=== PATIENT | female | born 1995 | race Two or more races ===

== ENCOUNTER 2017-12-21 19:28 | Outpatient (CLI) | payer BC ==
[2017-12-21 20:08] LABS: APPEARANCE,URINE SLIGHTLY-CLOUDY; BILIRUBIN,URINE NEGATIVE (NEGATIVE); COLOR,URINE AMBER; GLUCOSE, URINE NEGATIVE (NEGATIVE); KETONES,URINE NEGATIVE (NEGATIVE); LEUKOCYTE ESTERASE,URINE MODERATE (NEGATIVE); NITRITE,URINE NEGATIVE (NEGATIVE); PROTEIN,URINE 30 mg/dL (NEGATIVE); URINE SPECIFIC GRAVITY 1.026
[2017-12-21 20:22] LABS: AMNISURE (ROM) NEGATIVE (NEGATIVE)
--- NOTE | 2017-12-21 20:52 | Non Stress Test Report ---
Non Stress Test Datetime Report Generated by CPN: 12/21/2017 20:51 INDICATION Indication for Study: Ordered by Provider; Other Indication for Study (NST) Other: labor check MONITORING Monitor Explained: Monitor Explained; Test Explained; Patient Verbalized Understanding Time on Monitor: 12/21/2017 19:54 Time off Monitor: 12/21/2017 20:24 NST Duration: 30 NST INTERVENTIONS NST Interventions: None Physician Notified NST: Martinez BABY A: [id number] BABY A Movement : Present Contraction Frequency : uterine irritability FHR Baseline : 135 Accelerations : 15X15 Decelerations : None Variability : Moderate 6-25bpm NST Review: Meets Criteria for Reactive NST NST Review and Verified By : anjali desai rn NST Results: Reactive NST REPORT Report Trigger: Send Report
[2017-12-21 21:01] LABS: URINE AMPHETAMINES SCREEN NEGATIVE; URINE BARBITURATES SCREEN NEGATIVE; URINE BENZODIAZEPINES SCREEN NEGATIVE; URINE COCAINE SCREEN NEGATIVE; URINE MARIJUANA (THC) SCREEN NEGATIVE; URINE METHADONE SCREEN NEGATIVE; URINE PHENCYCLIDINE SCREEN NEGATIVE
== END 2017-12-21 20:36 | disposition home or self-care (01) ==
LOC: LC 19:28
PROVIDERS: ATTEND Student in an Organized Health Care Education/Training Program
PROC: 4A1HXCZ Monitoring of Products of Conception, Cardiac Rate, External Approach (ICD-10-PCS; principal; 2017-12-21)
DX: O47.03 False labor before 37 completed weeks of gestation, third trimester (principal); Z3A.34 34 weeks gestation of pregnancy
CPT/HCPCS: 59025; 80307; 81001; 84112

== ENCOUNTER 2017-12-25 10:40 | Inpatient (IN) | payer BC ==
[2018-01-03] MEDS ORDERED: RINGERS SOLUTION,LACTATED 300 ML IV ONE (06:13)
[2018-01-03] MEDS ORDERED: OXYTOCIN/NORMAL SALINE 20 UNIT/1,000 ML RTUINJ IV PRN (06:13)
[2018-01-03] MEDS ORDERED: RINGERS SOLUTION,LACTATED 1,000 ML IV PRN (06:13)
[2018-01-03 06:43] LABS: ABSOLUTE LYMPHOCYTES (AUTO) 1.1 10^3/uL (0.5-4.7); ABSOLUTE MONOCYTES (AUTO) 0.5 10^3/uL (0.1-1.4); ABSOLUTE NEUT (AUTO) 6.6 10^3/uL (1.7-8.2); BASOPHILS % (AUTO) 0.2 % (0-2); EOSINOPHILS % (AUTO) 0.5 % (0-6); HEMATOCRIT 32.9 % (36.0-47.0); LYMPHOCYTES % (AUTO) 13.2 % (13-45); MEAN CORPUSCULAR HEMOGLOBIN 27.1 pg (27.0-33.4); MEAN CORPUSCULAR HGB CONC 33.4 g/dL (32.0-36.0); MEAN CORPUSCULAR VOLUME 81 fl (80-97); MONOCYTES % (AUTO) 5.5 % (3-13); PLATELET COUNT 233 10^3/uL (150-450); RED BLOOD COUNT 4.06 10^6/uL (3.72-5.28); RED CELL DISTRIBUTION WIDTH 12.9 % (11.5-14.0); SEGMENTED NEUTROPHILS % (AUTO) 80.6 % (42-78); TOTAL CELLS COUNTED % (AUTO) 100 %; WHITE BLOOD COUNT 8.2 10^3/uL (4.0-10.5)
[2018-01-03] MEDS ORDERED: MISOPROSTOL 0.2 MG TABLET ONE (07:53)
[2018-01-03] MEDS ORDERED: OXYTOCIN/NORMAL SALINE 20 UNIT/1,000 ML RTUINJ ONE (07:53)
[2018-01-03] MEDS ORDERED: LIDOCAINE 1% INJ-PF (10 MG/ML) 30 ML SDV ONE (07:53)
--- NOTE | 2018-01-03 08:00 | Admission Physical ---
Datetime Report Generated by CPN: 01/03/2018 08:00 CURRENT ADMISSION Chief Complaint: Scheduled Induction of Labor Chief Complaint Other: cholestasis Indication for Induction: Other Indication for Induction- Other: Cholestasis Admit Impression : , Intrauterine ; No Active Labor; Induction of Labor Admit Impression- Other: cholestasis Admit Plan: Admit to Unit; Initiate Labor Induction Protocol ALLERGIES Medication Allergies: No Medication Allergies: No Known Allergies (01/03/2018) Latex: No Latex Allergies Food Allergies: calamari OBSTETRICAL HISTORY EDC: 01/25/2018 00:00 : 1 Para: 0 Term: 0 : 0 SAB: 0 IAB: 0 Ectopic: 0 Livin Cesareans: 0 VBACs: 0 Multiple Births: 0 Gestational Diabetes: No Rh Sensitization: No Incompetent Cervix: No LATOYA: No Infertility: No ART Treatment: No Uterine Anomaly: No IUGR: No Hx Previous C/S: No Macrosomia: No Hx Loss/Stillborn: No PIH: No Hx : No Placenta Previa/Abruption: No Depression/PP Depression: No PTL/PROM: No Post Hemorrhage: No Current Procedures: Ultrasound; NST Obstetrical History Comments: g1 - current cholestasis SEE RECORDS Alcohol: No Marijuana : No Cocaine: No Other Illicit Drugs: No Cigarettes: Never Smoker. 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 Heart Disease: No Hosp/Surgery: No Autoimmune Disorder: No Anesthetic Complications: No Kidney Disease: No Abnormal Pap Smear: No Neuro/Epilepsy: No Psychiatric Disorders: No Other Medical Diseases: No Hepatitis/Liver Disease: No Significant Family History: No Varicosities/Phlebitis: No Trauma/Violence : No Thyroid Dysfunction: No Medical History Comments: cholestasis INFECTIOUS HISTORY Gonorrhea: No Genital Herpes: No Chlamydia: No Tuberculosis: No Syphilis: No Hepatitis: No HIV/AIDS Exposure: No Rash or Viral Illness: No HPV: No PHYSICAL EXAM General: Normal HEENT: Normal Neurologic: Normal Thyroid: Deferred Heart: Normal Lungs: Normal Breast: Deferred Back: Normal Abdomen: Normal Genitourinary Exam: Normal Extremities: Normal DTRs: Normal Pelvic Type: Adequate Vital Signs: Reviewed VAGINAL EXAM Dilatation: 3 Effacement: 90 Station: -1 Contraction Comments: none MEMBRANES Membranes: Intact Amniotic Fluid Color: Clear FETUS A EGA: 36.6 Monitoring: External US FHR- Baseline: 145 Variability: Moderate 6-25bpm Accelerations: 15X15 Decelerations: None FHR Category: Category I Presentation: Vertex Admit Comment: 22yo at 36+6ega presents for scheduled IOL. c/b choletasis of with Bile acids 46. Pt now with favorable cervix. Unproven pelvis - but pelvis adequate for YENNIFER. Anticipate . GBS negative. reasuring FWB. labs done on admission. Will check labs/coags at 1000. Begin pitocin for IOL. section if needed for maternal/ indications. PLANS FOR LABOR AND DELIVERY Labor and Delivery: None Pain Management: Epidural Feeding Preference: Breast Benefit of Breast Feed Discussed: Yes Circumcision: N/A INFORMED CONSENT Informed Consent Obtained: Vaginal Delivery; Induction of Labor; Risks, Benefits and Alternatives Discussed Signature: with User ID: [email or web address]
[2018-01-03 08:35] LABS: APPEARANCE,URINE CLOUDY; BILIRUBIN,URINE NEGATIVE (NEGATIVE); GLUCOSE, URINE NEGATIVE (NEGATIVE); KETONES,URINE NEGATIVE (NEGATIVE); LEUKOCYTE ESTERASE,URINE LARGE (NEGATIVE); NITRITE,URINE NEGATIVE (NEGATIVE); PROTEIN,URINE NEGATIVE (NEGATIVE); URINE SPECIFIC GRAVITY 1.016
[2018-01-03 08:36] LABS: COLOR,URINE YELLOW
[2018-01-03 08:53] LABS: URINE AMPHETAMINES SCREEN NEGATIVE; URINE BARBITURATES SCREEN NEGATIVE; URINE COCAINE SCREEN NEGATIVE; URINE MARIJUANA (THC) SCREEN NEGATIVE; URINE METHADONE SCREEN NEGATIVE; URINE PHENCYCLIDINE SCREEN NEGATIVE
[2018-01-03 09:18] LABS: URINE BENZODIAZEPINES SCREEN NEGATIVE
[2018-01-03] MEDS ORDERED: HYDROXYZINE PAMOATE 25 MG CAPSULE PO ONE (09:23)
[2018-01-03] MEDS ORDERED: HYDROXYZINE PAMOATE 50 MG CAPSULE ONE (09:27)
[2018-01-03 10:34] LABS: INTERNATIONAL RATION (INR) 0.82; PROTHROMBIN TIME 11.7 SEC (11.4-15.4)
[2018-01-03 10:35] LABS: FIBRINOGEN 614 mg/dL (209-497)
[2018-01-03 10:55] LABS: ALANINE AMINOTRANSFERASE 321 U/L (9-52); ALKALINE PHOSPHATASE 209 U/L (38-126); ANION GAP 8 (5-19); ASPARTATE AMINO TRANSFERASE 217 U/L (14-36); BILIRUBIN,DIRECT 0.7 mg/dL (0.0-0.4); BILIRUBIN,TOTAL 0.7 mg/dL (0.2-1.3); BLOOD UREA NITROGEN 10 mg/dL (7-20); CALCIUM 9.2 mg/dL (8.4-10.2); CARBON DIOXIDE 23 mmol/L (22-30); CHLORIDE 107 mmol/L (98-107); GLUCOSE 79 mg/dL (75-110); TOTAL PROTEIN 5.8 g/dL (6.3-8.2)
[2018-01-03] MEDS ORDERED: HYDROXYZINE PAMOATE 50 MG CAPSULE PO ONE (11:00)
--- NOTE | 2018-01-03 13:06 | L&D Progress Notes ---
PROGRESS NOTES Datetime Report Generated by CPN: 01/03/2018 13:06 PROGRESS NOTE Impression: Reassuring Heart Rate Procedures: Artificial ROM; Sterile Vag Exam Plan: Continue Present Management; Induction Informed Consent Obtained: Vaginal Delivery; Induction of Labor; Risks, Benefits and Alternatives Discussed Comment: SVE w AROM-clear, then blood stained. Pitocin infusing at 18 milliunits via pump. Will continue IOL. VAGINAL EXAM Dilatation: 2 Dilatation: 3 Effacement: 70 Effacement: 90 Station: -2 Station: -1 Contractions: none MEMBRANES Membranes: Ruptured Membranes: Intact Membranes: Intact Amniotic Fluid Color: Clear Amniotic Fluid Color: Clear FETUS A FHR - Baseline: 130 Monitoring: External US Variability: Moderate 6-25bpm Decelerations: None : 36.6 : 36.0 Presentation: Vertex Presentation: Vertex SIGNATURE SIGNATURE: [id number];[id number];13,[id number] SIGNATURE: 13,[id number];14,[id number] SIGNATURE: 14,[id number];13,[id number] SIGNATURE: [id number];14,[id number] SIGNATURE: 14,[id number] Assignment: Paulette Pulido MD Signature: with User ID: [email or web address] : with User ID: [email or web address] : I personally evaluated and examined the patient in conjunction with the MLP and agree with the assessment, treatment plan and disposition.
[2018-01-03] MEDS ORDERED: BUPIVACAINE HCL 0.25 % INJ/PF (2.5 MG/1 ML) 30 ML VIAL ONE (13:37)
[2018-01-03] MEDS ORDERED: FENTANYL/BUPIVACAINE/NS/PF 300 MCG/150 ML RTUINJ EPI ONE (13:37)
[2018-01-03] MEDS ORDERED: EPHEDRINE SULFATE INJ 50 MG/1 ML AMPULE ONE (13:37)
[2018-01-04] MEDS ORDERED: PROMETHAZINE HCL INJ 25 MG/1 ML VIAL IV PRN (00:06)
[2018-01-04] MEDS ORDERED: MAGNESIUM HYDROXIDE SUSP 30 ML UDCUP PO PRN (00:06)
[2018-01-04] MEDS ORDERED: BENZOCAINE/MENTHOL AEROSOL SPRAY 56 ML TOP PRN (00:06)
[2018-01-04] MEDS ORDERED: ACETAMINOPHEN 650 MG SUPP.RECT PR PRN (00:06)
[2018-01-04] MEDS ORDERED: NA PHOS,M-B/NA PHOS,DI-BA (ADULT) 133 ML ENEMA PR PRN (00:06)
[2018-01-04] MEDS ORDERED: ZOLPIDEM TARTRATE 5 MG TABLET PO PRN (00:06)
[2018-01-04] MEDS ORDERED: DIPH/PERTUSS(ACELL)/TETANUS VAC/PF 0.5 ML SYR (>=10YO) IM PRN (00:06)
[2018-01-04] MEDS ORDERED: PROMETHAZINE HCL 25 MG SUPP.RECT PR PRN (00:06)
[2018-01-04] MEDS ORDERED: DIBUCAINE 1% OINTMENT 28 GM TP PRN (00:06)
[2018-01-04] MEDS ORDERED: MEASLES,MUMPS&RUBELLA VACC/PF 0.5 ML VIAL SUBCUT PRN (00:06)
[2018-01-04] MEDS ORDERED: OXYTOCIN/NORMAL SALINE 20 UNIT/1,000 ML RTUINJ IV PRN (00:06)
[2018-01-04] MEDS ORDERED: ACETAMINOPHEN WITH CODEINE #3 TABLET PO PRN ×2 (00:06)
[2018-01-04] MEDS ORDERED: PROMETHAZINE HCL 25 MG TABLET PO PRN (00:06)
[2018-01-04] MEDS ORDERED: GLYCERIN/WITCH HAZEL LEAF 1 EACH MED..PAD TP PRN (00:06)
[2018-01-04] MEDS ORDERED: DIPHENHYDRAMINE HCL 25 MG CAPSULE PO PRN (00:06)
[2018-01-04] MEDS ORDERED: PSEUDOEPHEDRINE HCL 30 MG TABLET PO PRN (00:06)
[2018-01-04] MEDS ORDERED: AMPICILLIN SODIUM/SULBACTAM NA 3 GM in NORMAL SALINE 100 ML IV SCH (02:00)
[2018-01-04] MEDS ORDERED: AMPICILLIN SOD/SULBACTAM 3 GM VIAL ONE (02:07)
[2018-01-04] MEDS ORDERED: ACETAMINOPHEN 325 MG TABLET ONE (02:07)
[2018-01-04] MEDS ORDERED: AMPICILLIN SOD/SULBACTAM 3 GM VIAL IV SCH (02:30)
--- NOTE | 2018-01-04 02:54 | Delivery Summary ---
Del Sum A-C Datetime Report Generated by CPN: 01/04/2018 02:54 DELIVERY PERSONNEL DELIVERY PERSONNEL: [id number] Delivery Doctor:: Paulette Pulido MD Labor and Delivery Nurse:: Sanjuana Jean RN Nursery Nurse:: Zoe Walterker, RN MATERNAL INFORMATION Delivery Anesthesia: Epidural Medications After Delivery: Pitocin Bolus-Please Comment; Other-Please Comment Meds After Delivery Comment: pitocin bolusing per order Cytotec 1000mcg [place] Estimated Blood Loss (ml): 250 Maternal Complications: Other Complication Details: Cholestasis LABOR SUMMARY EDC: 01/25/2018 00:00 No. Babies in Womb: 1 Attempted: No Labor Anesthesia: Epidural LABOR INFORMATION Reason for Induction: Other Reason for Induction- Other: cholestasis Onset of Labor: 01/03/2018 12:57 Complete Dilatation: 01/03/2018 23:02 Oxytocin: Induction Group B Beta Strep: negative Antibiotics # of Doses: 0 Antibiotics Time of Last Dose: N/A Name of Antibiotic Given: N/A Steroids Given: None Reason Steroids Not Administered: Not Applicable MEMBRANES Membranes Rupture Method: Artificial Rupture of Membranes: 01/03/2018 12:57 Length of Rupture (hr): 10.83 Amniotic Fluid Color: Clear Amniotic Fluid Amount: Small Amniotic Fluid Odor: Normal STAGES OF LABOR Stage 1 hr: 10 Stage 1 min: 5 Stage 2 hr: 0 Stage 2 min: 45 Stage 3 hr: 24 Stage 3 min: 2 Total Time in Labor hr: 34 Total Time in Labor min: 52 VAGINAL DELIVERY Episiotomy: None Laceration #1: Perineal Laceration Extension #1: Second Degree Laceration #2: None Laceration Extension #2: N/A Laceration #3: None Laceration Extension #3: N/A Laceration Repair: Yes Laceration Repair Note: perineal laceration repaired with 3-0 chromic in usual fashion. Sponge Count Correct: Vaginal Sweep Performed Sharps Count Correct: Yes CSECTION DELIVERY Primary Indication: N/A Secondary Indication: N/A CSection Incidence: N/A Labor: N/A Elective: N/A CSection Incision: N/A BABY A INFORMATION Infant Delivery Date/Time: 01/03/2018 23:47 Method of Delivery: Vaginal Born in Route : No : N/A Forceps: N/A Vacuum Extraction: N/A Shoulder Dystocia : No PRESENTATION/POSITION BABY A Presentation: Cephalic Cephalic Presentation: Vertex Vertex Position: Left Occipital Anterior Breech Presentation: N/A PLACENTA INFORMATION BABY A Placenta Delivery Time : 01/04/2018 23:49 Placenta Method of Delivery: Spontaneous Placenta Status: Delivered SCORES BABY A Heart Rate 1 min: >100 bpm Resp Effort 1 min: Slow, Irregular Reflex Irritability 1 min: Cough or Sneeze or Pulls Away Muscle Tone 1 min: Active Motion Color 1 min: Blue/Pale SCORE 1 MIN: 7 Heart Rate 5 min: >100 bpm Resp Effort 5 min: Slow, Irregular Reflex Irritability 5 min: Cough or Sneeze or Pulls Away Muscle Tone 5 min: Active Motion Color 5 min: Body [place], Extremities Blue SCORE 5 MIN: 8 INFANT INFORMATION BABY A Gestational Age at Delivery: 36.6 Gestational Status: Late - 34- 36.6 Weeks Outcome : Liveborn Condition : Stable Sex: Female IDENTIFICATION BABY A Infant Verification Date/Time: 01/03/2018 23:53 ID Band Number: [id number] Mother's Name Verified: Yes WEIGHT/LENGTH BABY A Birthweight (gm): 2720 Weight (lb): 6 Weight (oz): 0 Infant Length (in): 19.00 Length (cm): 48.26 CORD INFORMATION BABY A No. Cord Vessels: 3 Nuchal Cord : Around Neck x1, Tight Cord Blood Taken: Yes-For Storage (Mom's Blood type +) Suction: Mouth; Nose ASSESSMENT BABY A Complications: None Physical Findings at Delivery: Within Normal Limits Infant Respirations: Appears Normal Skin to Skin: Yes Transferred To: Remains with Mother BABY B INFORMATION : N/A SIGNATURES Signature: with User ID: [email or web address] : I personally evaluated and examined the patient in conjunction with the MLP and agree with the assessment, treatment plan and disposition.
--- NOTE | 2018-01-04 04:00 | RADIOLOGY REPORT (SQ) ---
EXAM DESCRIPTION: Single view of the chest CLINICAL HISTORY: shortness of breath COMPARISON: None. FINDINGS: Single frontal view of the chest. The cardiomediastinal silhouette has normal size and contour. No consolidation, pneumothorax, or pleural effusion. No displaced rib fractures identified. Upper abdominal soft tissues are unremarkable. IMPRESSION: 1. No acute pulmonary process identified.
--- NOTE | 2018-01-04 04:18 | PDOC CONSULTATION ---
Consultation Consult Date: 01/04/18 Attending physician:: NGUYỄN PULIDO Consult reason:: Fever, lethargy, hypoxia History of Present Illness Admission Date/PCP: 01/03/18 06:08 History of Present Illness: KELLEY SUMMERS is a 22 year old female patient admitted for scheduled and induction of labor yesterday morning. Patient had normal vaginal delivery uneventfully. I was consulted by Dr. Pulido, because patient has low- grade fever of 100.2,lethargy and saturation in the lower 80s. Patient does not have any underlying medical problems. Patient has been started on 2 L of oxygen and her O2 saturation improved to 94%. She was also given Tylenol for her fever. No source of infection identified at this point. I requested CTA of the chest to rule out PE and stat ABG. Past Medical History Medical History: None Past Surgical History Past Surgical History: Reports: None Social History Smoking Status: Never Smoker Frequency of Alcohol Use: None Hx Recreational Drug Use: No Drugs: None - Advance Directive Resuscitation Status: Full Code Family History Parental Family History Reviewed: Yes Children Family History Reviewed: Yes Sibling(s) Family History Reviewed.: Yes Medication/Allergy Home Medications: Vit,Calc76/Iron/Folic [Prenatabs Rx Tablet] 1 each PO DAILY 12/30/17 Diphenhydramine HCl [Benadryl] 25 mg PO DAILY 01/03/18 Allergies/Adverse Reactions: No Known Allergies Allergy (Verified 01/03/18 09:04) Review of Systems Constitutional: PRESENT: fatigue, fever(s) Cardiovascular: ABSENT: as per HPI, chest pain, dyspnea on exertion, edema, orthropnea, palpitations, other Respiratory: ABSENT: as per HPI, cough, dyspnea, hemoptysis, sputum, other Gastrointestinal: ABSENT: as per HPI, abdominal pain, bloating, coffee ground emesis, constipation, diarrhea, dysphagia, heartburn, hematemesis, hematochezia , melena, nausea, vomiting, other Neurological: ABSENT: as per HPI, abnormal gait, abnormal movements, abnormal speech, confusion, convulsions, dizziness, focal weakness, frequent falls, lack of coordination, memory loss, numbness, paresthesias, restless legs, syncope, tingling, tremor(s), vertigo, weakness, other Physical Exam Vital Signs: Temp Pulse Resp BP Pulse Ox 101.0 F H 85 20 138/78 H 77 L 01/04/18 02:53 01/04/18 02:53 01/04/18 02:53 01/04/18 02:53 01/04/18 02:53 Intake & Output 01/02/18 01/03/18 01/04/18 06:59 06:59 06:59 Weight 91 kg General appearance: PRESENT: mild distress Head exam: PRESENT: atraumatic, normocephalic Respiratory exam: PRESENT: clear to auscultation tessie. ABSENT: rales, rhonchi, wheezes Cardiovascular exam: PRESENT: RRR. ABSENT: diastolic murmur, rubs, systolic murmur GI/Abdominal exam: PRESENT: normal bowel sounds, soft. ABSENT: distended, guarding, mass, organolmegaly, rebound, tenderness Psychiatric exam: PRESENT: depressed Results Laboratory Results: 01/03/18 06:25 01/03/18 10:15 01/03/18 01/03/18 01/03/18 06:15 06:25 06:25 WBC 8.2 RBC 4.06 Hgb 11.0 L Hct 32.9 L MCV 81 MCH 27.1 MCHC 33.4 RDW 12.9 Plt Count 233 Seg Neutrophils % 80.6 H Lymphocytes % 13.2 Monocytes % 5.5 Eosinophils % 0.5 Basophils % 0.2 Absolute Neutrophils 6.6 Absolute Lymphocytes 1.1 Absolute Monocytes 0.5 Absolute Eosinophils 0.0 Absolute Basophils 0.0 Sodium Potassium Chloride Carbon Dioxide Anion Gap BUN Creatinine Est GFR ( Amer) Est GFR (Non-Af Amer) Glucose Calcium Total Bilirubin AST ALT Alkaline Phosphatase Total Protein Albumin Urine Color YELLOW Urine Appearance CLOUDY Urine pH 6.0 Ur Specific [place] 1.016 Urine Protein NEGATIVE Urine Glucose (UA) NEGATIVE Urine Ketones NEGATIVE Urine Blood NEGATIVE Urine Nitrite NEGATIVE Ur Leukocyte Esterase LARGE H Urine WBC (Auto) 145 Urine RBC (Auto) 5 Blood Type O POSITIVE Antibody Screen NEGATIVE 01/03/18 10:15 WBC RBC Hgb Hct MCV MCH MCHC RDW Plt Count Seg Neutrophils % Lymphocytes % Monocytes % Eosinophils % Basophils % Absolute Neutrophils Absolute Lymphocytes Absolute Monocytes Absolute Eosinophils Absolute Basophils Sodium 138.0 Potassium 4.0 Chloride 107 Carbon Dioxide 23 Anion Gap 8 BUN 10 Creatinine 0.44 L Est GFR ( Amer) > 60 Est GFR (Non-Af Amer) > 60 Glucose 79 Calcium 9.2 Total Bilirubin 0.7 AST 217 H ALT 321 H Alkaline Phosphatase 209 H Total Protein 5.8 L Albumin 3.0 L Urine Color Urine Appearance Urine pH Ur Specific [place] Urine Protein Urine Glucose (UA) Urine Ketones Urine Blood Urine Nitrite Ur Leukocyte Esterase Urine WBC (Auto) Urine RBC (Auto) Blood Type Antibody Screen Impressions: Chest X-Ray 01/04/18 00:00 IMPRESSION: 1. No acute pulmonary process identified. Assessment & Plan - Diagnosis (1) Fever Qualifiers: Fever type: unspecified Qualified Code(s): R50.9 - Fever, unspecified Is this a current diagnosis for this admission?: Yes Plan: Blood and urine culture. Continue Unasyn (2) Hypoxia Is this a current diagnosis for this admission?: Yes Plan: Etiology unknown CT of the chest to rule out PE. Transfer patient to ICU for close monitoring. - Time Time Spent: 30 to 50 Minutes - Inpatient Certification Medical Necessity: Need for IV Antibiotics
[2018-01-04 04:27] LABS: ARTERIAL BLOOD BASE EXCESS -0.4 mmol/L; ARTERIAL BLOOD H2CO3 0.91 mmol/L (1.05-1.35); ARTERIAL BLOOD HCO3 22.5 mmol/L (20-26); ARTERIAL BLOOD O2 SATURATION 95.1 % (94-98); ARTERIAL BLOOD PCO2 30.3 mmHg (35-45); ARTERIAL BLOOD PH 7.49 (7.35-7.45); ARTERIAL BLOOD PO2 67.9 mmHg (80-100); ARTERIAL BLOOD TOTAL CO2 23.4 mmol/L (21-25)
[2018-01-04 04:30] LABS: ARTERIAL BLOOD FIO2 2LPM
--- NOTE | 2018-01-04 05:13 | RADIOLOGY REPORT (SQ) ---
EXAM DESCRIPTION: CTA of the chest per PE protocol with contrast. CLINICAL HISTORY: SHORTNESS OF BREATH. POST 23:53 HRS 01/03/18 COMPARISON: None Available. TECHNIQUE: CTA of the chest obtained following the uncomplicated intravenous administration of 100 mL Isovue-370. 3-D/MIP reformatted images of the chest available for evaluation. DLP: 514.76 mGycm FINDINGS: Chest: Pulmonary arteries: Contrast bolus is adequate.No filling defects identified in the pulmonary arteries to suggest pulmonary embolus. Thyroid:No abnormalities of the visualized thyroid. Great Vessels:Great vessels have normal anatomic configuration. Thoracic Aorta:No abnormalities of the thoracic aorta identified. Heart:No cardiomegaly, significant pericardial effusion, or coronary artery atherosclerosis Lymph Nodes:No enlarged mediastinal lymph nodes identified. Esophagus:No abnormalities of the esophagus identified. Other: Residual thymus. Lungs: Patchy bibasilar airspace opacities. Pleura: Mild bilateral pleural effusions. No pneumothorax. Trachea/Airways:No abnormalities of the visualized trachea or airways. Bones:No destructive osseous lesions. Foci of air in the epidural region. Upper Abdomen: Limited images of the upper abdomen demonstrate no abnormalities of visualized liver or spleen. IMPRESSION: 1. No pulmonary embolus. 2. Patchy bibasilar opacities concerning for pneumonia. 3. Small bilateral pleural effusions. 4. Foci of air in the epidural space. This may be related to epidural from . Correlation with history recommended. This exam was performed according to our departmental dose-optimization program, which includes automated exposure control, adjustment of the mA and/or kV according to patient size and/or use of iterative reconstruction technique.
[2018-01-04] MEDS ORDERED: AZITHROMYCIN INJ 500 MG VIAL IV PRN (05:41)
[2018-01-04] MEDS ORDERED: CEFEPIME 2 GM/D5W RTU 2 GM/50 ML RTUPB IV ONE ×2 (05:45→06:55)
[2018-01-04] MEDS ORDERED: CEFEPIME 2 GM/D5W RTU 2 GM/50 ML RTUPB IV SCH ×2 (05:45→18:00)
[2018-01-04 05:48] LABS: ABSOLUTE LYMPHOCYTES (AUTO) 0.8 10^3/uL (0.5-4.7); ABSOLUTE MONOCYTES (AUTO) 0.7 10^3/uL (0.1-1.4); ABSOLUTE NEUT (AUTO) 10.1 10^3/uL (1.7-8.2); BASOPHILS % (AUTO) 0.3 % (0-2); HEMATOCRIT 29.3 % (36.0-47.0); HEMOGLOBIN 9.8 g/dL (12.0-15.5); LYMPHOCYTES % (AUTO) 6.8 % (13-45); MEAN CORPUSCULAR HEMOGLOBIN 27.1 pg (27.0-33.4); MEAN CORPUSCULAR HGB CONC 33.3 g/dL (32.0-36.0); MEAN CORPUSCULAR VOLUME 81 fl (80-97); MONOCYTES % (AUTO) 6.1 % (3-13); PLATELET COUNT 202 10^3/uL (150-450); RED CELL DISTRIBUTION WIDTH 13.1 % (11.5-14.0); SEGMENTED NEUTROPHILS % (AUTO) 86.8 % (42-78); TOTAL CELLS COUNTED % (AUTO) 100 %; WHITE BLOOD COUNT 11.7 10^3/uL (4.0-10.5)
[2018-01-04] MEDS ORDERED: MORPHINE SULFATE 10 MG/ML INJ ONE (05:54)
[2018-01-04] MEDS ORDERED: AZITHROMYCIN 500 MG in DEXTROSE 5%-WATER 250 ML IV ONE (06:00)
[2018-01-04] MEDS ORDERED: MORPHINE SULFATE 10 MG/ML INJ IV ONE (06:00)
[2018-01-04 06:04] LABS: ALANINE AMINOTRANSFERASE 355 U/L (9-52); ALBUMIN 2.4 g/dL (3.5-5.0); ALKALINE PHOSPHATASE 163 U/L (38-126); ANION GAP 5 (5-19); ASPARTATE AMINO TRANSFERASE 294 U/L (14-36); BILIRUBIN,DIRECT 0.8 mg/dL (0.0-0.4); BILIRUBIN,TOTAL 0.9 mg/dL (0.2-1.3); BLOOD UREA NITROGEN 9 mg/dL (7-20); CALCIUM 8.7 mg/dL (8.4-10.2); CARBON DIOXIDE 24 mmol/L (22-30); CHLORIDE 108 mmol/L (98-107); GLUCOSE 80 mg/dL (75-110); POTASSIUM 3.9 mmol/L (3.6-5.0); SODIUM 137.4 mmol/L (137-145); TOTAL PROTEIN 4.8 g/dL (6.3-8.2)
[2018-01-04] MEDS: IBUPROFEN 800 MG TABLET PO SCH ×3 (06:43→21:02)
[2018-01-04] MEDS ORDERED: AZITHROMYCIN INJ 500 MG VIAL IV ONE (06:55)
--- NOTE | 2018-01-04 10:18 | PDOC PROGRESS REPORT ---
Subjective Progress Note for:: 01/04/18 Subjective:: Patient states she is feeling a lot better She has had no cough no fever She has no abdominal pain She remains hemodynamically stable and oxygenation is adequate on nasal cannula Reason For Visit: INDUCTION Physical Exam Vital Signs: Temp Pulse Resp BP Pulse Ox 100.4 F 68 20 122/89 H 93 01/04/18 07:02 01/04/18 05:29 01/04/18 06:28 01/04/18 07:02 01/04/18 07:02 Intake & Output 01/03/18 01/04/18 01/05/18 00:59 00:59 00:59 Output Total 1315 Balance -1315 Weight 91 kg General appearance: PRESENT: no acute distress, obese Head exam: PRESENT: atraumatic Eye exam: PRESENT: conjunctiva pink, EOMI, PERRLA. ABSENT: scleral icterus Neck exam: ABSENT: carotid bruit, JVD, lymphadenopathy, thyromegaly Respiratory exam: PRESENT: clear to auscultation tessie. ABSENT: rales, rhonchi, wheezes Pulses: PRESENT: normal dorsalis pedis pul GI/Abdominal exam: PRESENT: normal bowel sounds, soft. ABSENT: distended, guarding, mass, organolmegaly, rebound, tenderness Extremities exam: PRESENT: full ROM. ABSENT: calf tenderness, clubbing, pedal edema Neurological exam: PRESENT: alert, awake, oriented to person, oriented to place , oriented to time, oriented to situation, CN II-XII grossly intact. ABSENT: motor sensory deficit Results Laboratory Results: 01/04/18 05:20 01/04/18 05:20 01/03/18 01/04/18 01/04/18 10:15 04:10 05:20 WBC 11.7 H RBC 3.60 L Hgb 9.8 L Hct 29.3 L MCV 81 MCH 27.1 MCHC 33.3 RDW 13.1 Plt Count 202 Seg Neutrophils % 86.8 H Lymphocytes % 6.8 L Monocytes % 6.1 Eosinophils % 0.0 Basophils % 0.3 Absolute Neutrophils 10.1 H Absolute Lymphocytes 0.8 Absolute Monocytes 0.7 Absolute Eosinophils 0.0 Absolute Basophils 0.0 Carbonic Acid 0.91 L HCO3/H2CO3 Ratio 24:1 ABG pH 7.49 H ABG pCO2 30.3 L ABG pO2 67.9 L ABG HCO3 22.5 ABG O2 Saturation 95.1 ABG Base Excess -0.4 FiO2 2LPM Sodium 138.0 Potassium 4.0 Chloride 107 Carbon Dioxide 23 Anion Gap 8 BUN 10 Creatinine 0.44 L Est GFR ( Amer) > 60 Est GFR (Non-Af Amer) > 60 Glucose 79 Lactic Acid Calcium 9.2 Total Bilirubin 0.7 AST 217 H ALT 321 H Alkaline Phosphatase 209 H Ammonia Total Protein 5.8 L Albumin 3.0 L 01/04/18 01/04/18 01/04/18 05:20 05:20 05:20 WBC RBC Hgb Hct MCV MCH MCHC RDW Plt Count Seg Neutrophils % Lymphocytes % Monocytes % Eosinophils % Basophils % Absolute Neutrophils Absolute Lymphocytes Absolute Monocytes Absolute Eosinophils Absolute Basophils Carbonic Acid HCO3/H2CO3 Ratio ABG pH ABG pCO2 ABG pO2 ABG HCO3 ABG O2 Saturation ABG Base Excess FiO2 Sodium 137.4 Potassium 3.9 Chloride 108 H Carbon Dioxide 24 Anion Gap 5 BUN 9 Creatinine 0.62 Est GFR ( Amer) > 60 Est GFR (Non-Af Amer) > 60 Glucose 80 Lactic Acid 0.8 Calcium 8.7 Total Bilirubin 0.9 AST 294 H ALT 355 H Alkaline Phosphatase 163 H Ammonia < 8.7 L Total Protein 4.8 L Albumin 2.4 L Impressions: Chest X-Ray 01/04/18 00:00 IMPRESSION: 1. No acute pulmonary process identified. Chest/Abdomen CTA 01/04/18 00:00 IMPRESSION: 1. No pulmonary embolus. 2. Patchy bibasilar opacities concerning for pneumonia. 3. Small bilateral pleural effusions. 4. Foci of air in the epidural space. This may be related to epidural from . Correlation with history recommended. This exam was performed according to our departmental dose-optimization program, which includes automated exposure control, adjustment of the mA and/or kV according to patient size and/or use of iterative reconstruction technique. Assessment & Plan - Diagnosis (1) Pneumonia Qualifiers: Pneumonia type: due to unspecified organism Laterality: bilateral Lung location: lower lobe of lung Qualified Code(s): J18.1 - Lobar pneumonia, unspecified organism Is this a current diagnosis for this admission?: Yes Plan: Continue Unasyn (2) Cholestasis during Qualifiers: Trimester: third trimester Qualified Code(s): O26.613 - Liver and biliary tract disorders in , third trimester; K83.1 - Obstruction of bile duct ; K83.1 - Obstruction of bile duct Is this a current diagnosis for this admission?: Yes Plan: Elevated LFTs We will schedule the patient for a ultrasound of the right upper quadrant in a.m. with Doppler studies to exclude portal vein thrombosis - Time Time Spent with patient: Patient may be transferred back to L&D Time Spent with patient: 15-24 minutes
--- NOTE | 2018-01-04 10:41 | PDOC PROGRESS REPORT ---
Subjective-OB Progress Note for:: 01/04/18 Physical Exam (OB) Vital Signs: Temp Pulse Resp BP Pulse Ox 100.4 F 68 20 122/89 H 93 01/04/18 07:02 01/04/18 05:29 01/04/18 06:28 01/04/18 07:02 01/04/18 07:02 Intake & Output 01/03/18 01/04/18 01/05/18 06:59 06:59 06:59 Output Total 515 800 Balance -515 -800 Weight 91 kg - General General Appearance: Appears well - PIH/Pre-Eclampsia Clonus: Negative Headache: Absent Epigastric Pain: No Visual Changes: No - Lochia Lochia Amount: Scant < 10 ml Lochia Color: Rubra/Red - Abdomen Description: Tender, Soft Hernia Present: No Bowel Sounds: Normoactive Flatus Presence: Present Stool: No Fundal Description: Firm Fundal Height: u/u - u/2 - Respiratory Breath sounds: Clear - Extremities Calf: Normal Objective-Diagnostic Laboratory: 01/04/18 05:20 01/04/18 05:20 01/03/18 01/04/18 01/04/18 10:15 04:10 05:20 WBC 11.7 H RBC 3.60 L Hgb 9.8 L Hct 29.3 L MCV 81 MCH 27.1 MCHC 33.3 RDW 13.1 Plt Count 202 Seg Neutrophils % 86.8 H Lymphocytes % 6.8 L Monocytes % 6.1 Eosinophils % 0.0 Basophils % 0.3 Absolute Neutrophils 10.1 H Absolute Lymphocytes 0.8 Absolute Monocytes 0.7 Absolute Eosinophils 0.0 Absolute Basophils 0.0 Carbonic Acid 0.91 L HCO3/H2CO3 Ratio 24:1 ABG pH 7.49 H ABG pCO2 30.3 L ABG pO2 67.9 L ABG HCO3 22.5 ABG O2 Saturation 95.1 ABG Base Excess -0.4 FiO2 2LPM Sodium 138.0 Potassium 4.0 Chloride 107 Carbon Dioxide 23 Anion Gap 8 BUN 10 Creatinine 0.44 L Est GFR ( Amer) > 60 Est GFR (Non-Af Amer) > 60 Glucose 79 Lactic Acid Calcium 9.2 Total Bilirubin 0.7 AST 217 H ALT 321 H Alkaline Phosphatase 209 H Ammonia Total Protein 5.8 L Albumin 3.0 L 0501/04/18 01/04/18 05:20 05:20 05:20 WBC RBC Hgb Hct MCV MCH MCHC RDW Plt Count Seg Neutrophils % Lymphocytes % Monocytes % Eosinophils % Basophils % Absolute Neutrophils Absolute Lymphocytes Absolute Monocytes Absolute Eosinophils Absolute Basophils Carbonic Acid HCO3/H2CO3 Ratio ABG pH ABG pCO2 ABG pO2 ABG HCO3 ABG O2 Saturation ABG Base Excess FiO2 Sodium 137.4 Potassium 3.9 Chloride 108 H Carbon Dioxide 24 Anion Gap 5 BUN 9 Creatinine 0.62 Est GFR ( Amer) > 60 Est GFR (Non-Af Amer) > 60 Glucose 80 Lactic Acid 0.8 Calcium 8.7 Total Bilirubin 0.9 AST 294 H ALT 355 H Alkaline Phosphatase 163 H Ammonia < 8.7 L Total Protein 4.8 L Albumin 2.4 L Assessment and Plan(PN) - Assessment and Plan (1) Qualifiers: Weeks of gestation: 40 weeks Qualified Code(s): Z3A.40 - 40 weeks gestation of Is this a current diagnosis for this admission?: Yes (2) Pneumonia Qualifiers: Pneumonia type: due to unspecified organism Laterality: bilateral Lung location: lower lobe of lung Qualified Code(s): J18.1 - Lobar pneumonia, unspecified organism Is this a current diagnosis for this admission?: Yes - Time Spent with Patient Time with patient: Less than 15 minutes Medications reviewed and adjusted accordingly: Yes - Disposition Anticipated Discharge: Home Within: within 72 hours Disposition: transfer to post
[2018-01-04] MEDS: PRENATAL VITAMIN W DHA CAPSULE PO SCH (10:47)
[2018-01-04] MEDS: FERROUS SULFATE 325 MG TABLET PO SCH ×2 (10:47→18:33)
[2018-01-04] MEDS: FAMOTIDINE 20 MG TABLET PO SCH ×2 (10:47→21:03)
[2018-01-04] MEDS: SENNOSIDES/DOCUSATE 8.6-50 MG 1 EACH TABLET PO SCH (10:47)
[2018-01-04] MEDS: DOCUSATE SODIUM 100 MG CAPSULE PO SCH ×2 (10:47→18:33)
[2018-01-04] MEDS: AMPICILLIN SODIUM/SULBACTAM NA 3 GM in NORMAL SALINE 100 ML IV SCH ×2 (10:48→18:33)
[2018-01-05] MEDS: AMPICILLIN SODIUM/SULBACTAM NA 3 GM in NORMAL SALINE 100 ML IV SCH ×2 (02:02→09:42)
[2018-01-05] MEDS: IBUPROFEN 800 MG TABLET PO SCH (05:58)
[2018-01-05 07:32] LABS: HEMATOCRIT 28.6 % (36.0-47.0); HEMOGLOBIN 9.5 g/dL (12.0-15.5); MEAN CORPUSCULAR HEMOGLOBIN 27.1 pg (27.0-33.4); MEAN CORPUSCULAR HGB CONC 33.2 g/dL (32.0-36.0); MEAN CORPUSCULAR VOLUME 82 fl (80-97); PLATELET COUNT 197 10^3/uL (150-450); RED CELL DISTRIBUTION WIDTH 13.1 % (11.5-14.0); WHITE BLOOD COUNT 12.1 10^3/uL (4.0-10.5)
--- NOTE | 2018-01-05 07:42 | PDOC DISCHARGE SUMMARY ---
Final Diagnosis Discharge Date: 01/05/18 - Final Diagnosis (1) Cholestasis during Is this a current diagnosis for this admission?: Yes (2) Fever Is this a current diagnosis for this admission?: Yes (3) Hypoxia Is this a current diagnosis for this admission?: Yes (4) Pneumonia Is this a current diagnosis for this admission?: Yes (5) Is this a current diagnosis for this admission?: Yes Discharge Data - Discharge Medication Prescriptions: Docusate Sodium [Colace 100 mg Capsule] 100 mg PO BID #60 capsule Ferrous Sulfate [Feosol 325 mg Tablet] 325 mg PO BID #60 tablet Ibuprofen [Motrin 800 mg Tablet] 800 mg PO Q8 #60 tablet Home Medications: Vit,Calc76/Iron/Folic [Prenatabs Rx Tablet] 1 each PO DAILY 12/30/17 Docusate Sodium [Colace 100 mg Capsule] 100 mg PO BID #60 capsule 01/05/18 Ferrous Sulfate [Feosol 325 mg Tablet] 325 mg PO BID #60 tablet 01/05/18 Ibuprofen [Motrin 800 mg Tablet] 800 mg PO Q8 #60 tablet 01/05/18 Gestational Age: 36.6 Reason(s) for Admission: Induction of Labor - cholestasis Procedures: NST Intrapartum Procedure(s): Spontaneous Vaginal Delivery Complication(s): Laceration-Vaginal Laceration-Degree: 1st - Williams Data Baby 1 Female at 1 minute: 7 at 5 minutes: 8 Weight: 2720 kg Home with Mother: Yes Complications: No - Diagnosis Test Laboratory: Temp Pulse Resp BP Pulse Ox 97.6 F 77 20 129/81 H 94 01/05/18 04:25 01/05/18 04:25 01/05/18 04:25 01/05/18 04:25 01/04/18 23:54 01/03/18 01/03/18 01/04/18 06:15 06:25 05:20 RBC 4.06 3.60 L Hgb 11.0 L 9.8 L Hct 32.9 L 29.3 L Urine Opiates Screen NEGATIVE 01/05/18 06:58 RBC 3.50 L Hgb 9.5 L Hct 28.6 L Urine Opiates Screen - Discharge information/Instructions Discharge Activity: Activity As Tolerated, Pelvic Rest, No tub bath Discharge Diet: Regular Disposition: HOME, SELF-CARE Follow up with: [facility] in: 1, Weeks
--- NOTE | 2018-01-05 08:20 | RADIOLOGY REPORT (SQ) ---
EXAM DESCRIPTION: U/S ABDOMEN LTD W/DOPPLER COMPLETED DATE/TIME: 01/05/2018 7:56 am REASON FOR STUDY: elevated LFT's S/P vaginal delivery COMPARISON: None. TECHNIQUE: Dynamic and static grayscale images acquired of the abdomen and recorded on PACS. Additio nal selected color Doppler and spectral images recorded. LIMITATIONS: None. FINDINGS: PANCREAS: No masses. Visualized pancreatic duct normal caliber. LIVER: No masses. Echotexture normal. LIVER VASCULATURE: Normal directional flow of the main portal vein and hepatic veins. GALLBLADDER: No stones. Normal wall thickness. No pericholecystic fluid. ULTRASOUND-DETECTED KING'S SIGN: Negative. INTRAHEPATIC DUCTS AND COMMON DUCT: CBD and intrahepatic ducts normal caliber. No filling defects. INFERIOR VENA CAVA: Normal flow. AORTA: No aneurysm. RIGHT KIDNEY: Normal size. Normal echogenicity. No solid or suspicious masses. No hydronephrosis. No calcifications. PERITONEAL AND RIGHT PLEURAL SPACE: No ascites or effusions. OTHER: No other significant findings. IMPRESSION: NORMAL RIGHT UPPER QUADRANT ULTRASOUND. TECHNICAL DOCUMENTATION: JOB ID: [id number] [email or web address]- All Rights Reserved Reading location - IP/workstation name: [email or web address]
[2018-01-05] MEDS: SENNOSIDES/DOCUSATE 8.6-50 MG 1 EACH TABLET PO SCH (09:41)
[2018-01-05] MEDS: FAMOTIDINE 20 MG TABLET PO SCH (09:41)
[2018-01-05] MEDS: DOCUSATE SODIUM 100 MG CAPSULE PO SCH (09:41)
[2018-01-05] MEDS: FERROUS SULFATE 325 MG TABLET PO SCH (09:41)
[2018-01-05] MEDS: PRENATAL VITAMIN W DHA CAPSULE PO SCH (09:41)
[2018-01-05] MEDS ORDERED: AZITHROMYCIN 500 MG in DEXTROSE 5%-WATER 250 ML IV SCH (10:00)
--- NOTE | 2018-01-05 14:34 | PDOC PROGRESS REPORT ---
Subjective Progress Note for:: 01/05/18 Subjective:: 22 yr old female s/p normal vaginal delivery. Medicine service consulted for fever was found to have aspiration pneumonia and was started on antibiotics. She feels well, no complaints. Medically clear for discharge home when ready per OB. Script for Augmentin and Probiotic written. Reason For Visit: INDUCTION Physical Exam Vital Signs: Temp Pulse Resp BP Pulse Ox 97.4 F 56 L 16 143/77 H 95 01/05/18 06:55 01/05/18 06:55 01/05/18 06:55 01/05/18 06:55 01/05/18 06:55 Intake & Output 01/04/18 01/05/18 01/06/18 06:59 06:59 06:59 Intake Total 1200 Output Total 515 1525 Balance -515 -325 Weight 91 kg 93.4 kg Baby 1 Female 2720 kg General appearance: PRESENT: no acute distress Head exam: PRESENT: normocephalic Eye exam: ABSENT: periorbital swelling Ear exam: PRESENT: normal external ear exam Mouth exam: PRESENT: moist Respiratory exam: PRESENT: symmetrical, unlabored. ABSENT: crackles Cardiovascular exam: PRESENT: RRR GI/Abdominal exam: PRESENT: normal bowel sounds Rectal exam: PRESENT: deferred Results Laboratory Results: 01/05/18 06:58 01/04/18 05:20 01/05/18 06:58 WBC 12.1 H RBC 3.50 L Hgb 9.5 L Hct 28.6 L MCV 82 MCH 27.1 MCHC 33.2 RDW 13.1 Plt Count 197 Impressions: Chest X-Ray 01/04/18 00:00 IMPRESSION: 1. No acute pulmonary process identified. Chest/Abdomen CTA 01/04/18 00:00 IMPRESSION: 1. No pulmonary embolus. 2. Patchy bibasilar opacities concerning for pneumonia. 3. Small bilateral pleural effusions. 4. Foci of air in the epidural space. This may be related to epidural from . Correlation with history recommended. This exam was performed according to our departmental dose-optimization program, which includes automated exposure control, adjustment of the mA and/or kV according to patient size and/or use of iterative reconstruction technique. Abdomen Ultrasound 01/05/18 06:00 IMPRESSION: NORMAL RIGHT UPPER QUADRANT ULTRASOUND. Assessment & Plan - Diagnosis (1) Aspiration pneumonia Is this a current diagnosis for this admission?: Yes Plan: Continue Augmentin- complete 7 days. (2) Cholestasis during Qualifiers: Trimester: third trimester Qualified Code(s): O26.613 - Liver and biliary tract disorders in , third trimester; K83.1 - Obstruction of bile duct ; K83.1 - Obstruction of bile duct Is this a current diagnosis for this admission?: Yes Plan: US abdomen normal - Time Time Spent with patient: 25-34 minutes
[2018-01-05 14:36] VITALS: BP 122/89
[2018-01-05] MEDS ORDERED: AMOXICILLIN TR/POT CLAVULANATE ES 600-42.9 MG/5 ML 75 ML PO SCH (14:45)
[2018-01-05] MEDS ORDERED: LACTOBACILLUS ACIDOPHILUS 250 MG TAB PO SCH (18:00)
[2018-01-05] MEDS ORDERED: AMOXICILLIN TR/POT CLAVULANATE 500-125 MG TAB PO SCH (22:00)
== END 2018-01-05 15:35 | disposition home or self-care (01) | DRG 775 ==
LOC: LR 01-03 06:08 → 2N 01-04 02:43 → ICU 01-04 04:34 → 2N 01-04 11:27
PROVIDERS: ADMIT Student in an Organized Health Care Education/Training Program; ATTEND Student in an Organized Health Care Education/Training Program
PROC: 10E0XZZ Delivery of Products of Conception, External Approach (ICD-10-PCS; principal; 2018-01-03)
PROC: 0KQM0ZZ Repair Perineum Muscle, Open Approach (ICD-10-PCS; 2018-01-03)
DX: O26.62 Liver and biliary tract disorders in childbirth (principal); J69.0 Pneumonitis due to inhalation of food and vomit; K83.1 Obstruction of bile duct; O99.52 Diseases of the respiratory system complicating childbirth; O70.1 Second degree perineal laceration during delivery; R09.02 Hypoxemia; O69.1XX0 Labor and delivery complicated by cord around neck, with compression, not applicable or unspecified; Z3A.36 36 weeks gestation of pregnancy; Z37.0 Single live birth
CPT/HCPCS: 36415; 36600; 71045; 71275; 76705; 80053; 80307; 81001; 82140; 82803; 83605; 85025; 85027; 85362; 85384; 85610; 86592; 86850; 86900; 86901; 87040; 87086; 93976; J0295; J0456; J0692; J2270; J2590; J3010; J3490; J7060

== ENCOUNTER 2017-12-30 18:49 | Outpatient (CLI) | payer BC ==
[2017-12-30 19:21] LABS: APPEARANCE,URINE SLIGHTLY-CLOUDY; BILIRUBIN,URINE NEGATIVE (NEGATIVE); COLOR,URINE YELLOW; GLUCOSE, URINE NEGATIVE (NEGATIVE); KETONES,URINE NEGATIVE (NEGATIVE); LEUKOCYTE ESTERASE,URINE LARGE (NEGATIVE); NITRITE,URINE NEGATIVE (NEGATIVE); PROTEIN,URINE NEGATIVE (NEGATIVE); URINE SPECIFIC GRAVITY 1.011; UROBILINOGEN,URINE NEGATIVE mg/dL (<2.0)
[2017-12-30 19:38] LABS: URINE AMPHETAMINES SCREEN NEGATIVE; URINE BARBITURATES SCREEN NEGATIVE; URINE BENZODIAZEPINES SCREEN NEGATIVE; URINE COCAINE SCREEN NEGATIVE; URINE MARIJUANA (THC) SCREEN NEGATIVE; URINE METHADONE SCREEN NEGATIVE; URINE PHENCYCLIDINE SCREEN NEGATIVE
--- NOTE | 2017-12-30 20:26 | Admission Physical ---
Datetime Report Generated by CPN: 12/30/2017 20:25 CURRENT ADMISSION Chief Complaint: Other Chief Complaint Other: Cholestasis. UTD recomends delivery between 36-37 wks. Indication for Induction- Other: cholestasis Admit Impression- Other: cholestasis Admit Plan: Admit to Unit; Initiate Labor Induction Protocol ALLERGIES Medication Allergies: No Medication Allergies: No Known Allergies (12/30/2017) Latex: No Latex Allergies Food Allergies: calamari OBSTETRICAL HISTORY EDC: 01/25/2018 00:00 : 1 Para: 0 Term: 0 : 0 SAB: 0 IAB: 0 Ectopic: 0 Livin Cesareans: 0 VBACs: 0 Multiple Births: 0 Gestational Diabetes: No Rh Sensitization: No Incompetent Cervix: No LATOYA: No Infertility: No ART Treatment: No Uterine Anomaly: No IUGR: No Hx Previous C/S: No Macrosomia: No Hx Loss/Stillborn: No PIH: No Hx : No Placenta Previa/Abruption: No Depression/PP Depression: No PTL/PROM: No Post Hemorrhage: No Current Procedures: Ultrasound; NST Obstetrical History Comments: g1 - current SEE RECORDS Alcohol: No Marijuana : No Cocaine: No Other Illicit Drugs: No Cigarettes: Never Smoker. [id number] MEDICAL HISTORY Diabetes: No Blood Transfusion: No Pulmonary Disease (Asthma, TB): No Breast Disease: No Hypertension: No Director Trading Surgery: No Heart Disease: No Hosp/Surgery: No Autoimmune Disorder: No Anesthetic Complications: No Kidney Disease: No Abnormal Pap Smear: No Neuro/Epilepsy: No Psychiatric Disorders: No Other Medical Diseases: No Hepatitis/Liver Disease: No Significant Family History: No Varicosities/Phlebitis: No Trauma/Violence : No Thyroid Dysfunction: No INFECTIOUS HISTORY Gonorrhea: No Genital Herpes: No Chlamydia: No Tuberculosis: No Syphilis: No Hepatitis: No HIV/AIDS Exposure: No Rash or Viral Illness: No HPV: No PHYSICAL EXAM General: Normal HEENT: Normal Neurologic: Normal Thyroid: Normal Heart: Normal Lungs: Normal Breast: Deferred Back: Normal Abdomen: Normal Genitourinary Exam: Normal Extremities: Normal DTRs: Normal Pelvic Type: Adequate MEMBRANES Membranes: Intact FETUS A EGA: 36.2 Monitoring: External US FHR- Baseline: 130 Variability: Moderate 6-25bpm Accelerations: 15X15 Decelerations: None FHR Category: Category I Presentation: Vertex Admit Comment: We discussed options of induction at 36-37 wks. We can schedule for MON, WED, Thurs. PLANS FOR LABOR AND DELIVERY Labor and Delivery: None Pain Management: Epidural Feeding Preference: Breast Circumcision: N/A INFORMED CONSENT Signature: with User ID: [email or web address]
[2017-12-30 20:28] LABS: ABSOLUTE LYMPHOCYTES (AUTO) 1.4 10^3/uL (0.5-4.7); ABSOLUTE MONOCYTES (AUTO) 0.6 10^3/uL (0.1-1.4); ABSOLUTE NEUT (AUTO) 8.2 10^3/uL (1.7-8.2); BASOPHILS % (AUTO) 0.1 % (0-2); EOSINOPHILS % (AUTO) 0.3 % (0-6); HEMATOCRIT 32.9 % (36.0-47.0); HEMOGLOBIN 11.1 g/dL (12.0-15.5); LYMPHOCYTES % (AUTO) 13.9 % (13-45); MEAN CORPUSCULAR HEMOGLOBIN 27.4 pg (27.0-33.4); MEAN CORPUSCULAR HGB CONC 33.8 g/dL (32.0-36.0); MEAN CORPUSCULAR VOLUME 81 fl (80-97); MONOCYTES % (AUTO) 5.9 % (3-13); PLATELET COUNT 236 10^3/uL (150-450); RED BLOOD COUNT 4.06 10^6/uL (3.72-5.28); RED CELL DISTRIBUTION WIDTH 12.7 % (11.5-14.0); SEGMENTED NEUTROPHILS % (AUTO) 79.8 % (42-78); TOTAL CELLS COUNTED % (AUTO) 100 %; WHITE BLOOD COUNT 10.2 10^3/uL (4.0-10.5)
[2017-12-30 20:34] LABS: ALANINE AMINOTRANSFERASE 281 U/L (9-52); ALBUMIN 3.1 g/dL (3.5-5.0); ALKALINE PHOSPHATASE 210 U/L (38-126); ANION GAP 7 (5-19); ASPARTATE AMINO TRANSFERASE 161 U/L (14-36); BILIRUBIN,DIRECT 0.6 mg/dL (0.0-0.4); BILIRUBIN,TOTAL 0.6 mg/dL (0.2-1.3); BLOOD UREA NITROGEN 12 mg/dL (7-20); CALCIUM 9.1 mg/dL (8.4-10.2); CARBON DIOXIDE 25 mmol/L (22-30); CHLORIDE 105 mmol/L (98-107); GLUCOSE 80 mg/dL (75-110); LDH 568 U/L (313-618); POTASSIUM 3.9 mmol/L (3.6-5.0); TOTAL PROTEIN 5.9 g/dL (6.3-8.2); URIC ACID 3.7 mg/dL (2.5-6.2)
--- NOTE | 2018-01-03 05:56 | Non Stress Test Report ---
Non Stress Test Datetime Report Generated by CPN: 01/03/2018 05:56 DEMOGRAPHIC Test Number: 2 EGA NST: 36.2 INDICATION Indication for Study: Ordered by Provider URINE RESULTS Urine Protein, NST: Negative Urine Ketones - NST: Negative Urine Glucose - NST: Negative Urine Blood - NST: Negative MONITORING Monitor Explained: Monitor Explained; Test Explained; Patient Verbalized Understanding Time on Monitor: 12/30/2017 19:02 Time off Monitor: 12/30/2017 21:09 NST Duration: 127 NST INTERVENTIONS NST Interventions: PO Hydration; Reposition Patient Physician Notified NST: Dr. Pulido BABY A: [id number] BABY A Movement : Present Contraction Frequency : 1.5-12 FHR Baseline : 135 Accelerations : 15X15 Decelerations : None Variability : Moderate 6-25bpm NST Review: Meets Criteria for Reactive NST NST Review and Verified By : JASON KEENE Results: Reactive NST REPORT Report Trigger: Send Report
== END 2017-12-30 21:18 | disposition home or self-care (01) ==
LOC: LC 18:49
PROVIDERS: ATTEND Obstetrics & Gynecology
PROC: 4A1HXCZ Monitoring of Products of Conception, Cardiac Rate, External Approach (ICD-10-PCS; principal; 2017-12-30)
DX: O99.613 Diseases of the digestive system complicating pregnancy, third trimester (principal); K80.20 Calculus of gallbladder without cholecystitis without obstruction; Z3A.36 36 weeks gestation of pregnancy
CPT/HCPCS: 36415; 59025; 80053; 80307; 81001; 83615; 84550; 85025

== ENCOUNTER 2019-02-13 02:11 | Emergency (ER) | payer OTHER, BC ==
[2019-02-13] MEDS ORDERED: KETOROLAC TROMETHAMINE INJ/PF 30 MG/1 ML SDV IM ONE (04:56)
--- NOTE | 2019-02-13 05:04 | ER Document Report ---
ED General - General Chief Complaint: Ankle Pain Stated Complaint: ANKLE INJURY Time Seen by Provider: 02/13/19 04:49 Notes: Patient is a pleasant 23-year-old female presents with complaint of pain in the body as well as tingling into the fingertips that occurred shortly after she started taking tramadol. She is prescribed tramadol for an ankle sprain. She sprained her ankle several days ago. She was referred to the ER and they did x-rays which were negative and then prescribed her the tramadol. She denies any fevers. No vomiting. No other complaints at this time. TRAVEL OUTSIDE OF THE [place] IN LAST 30 DAYS: No - Related Data Allergies/Adverse Reactions: tramadol Adverse Reaction (Verified 02/13/19 05:22) Past Medical History - Social History Smoking Status: Never Smoker Frequency of alcohol use: None Drug Abuse: None Family History: Reviewed & Not Pertinent Patient has suicidal ideation: No Patient has homicidal ideation: No Renal/ Medical History: Denies: Hx Peritoneal Dialysis Review of Systems - Review of Systems Notes: My Normal Review Basic REVIEW OF SYSTEMS: CONSTITUTIONAL : Denies fever, chills, or sweats. Denies recent illness. CARDIOVASCULAR: Denies chest pain. RESPIRATORY: Denies cough, cold, or chest congestion. Denies shortness of breath, difficulty breathing, or wheezing. GASTROINTESTINAL: Denies abdominal pain. Denies nausea, vomiting, or diarrhea. MUSCULOSKELETAL: Right ankle sprain. Body aches SKIN: Denies rash or skin lesions. NEUROLOGICAL: Denies altered mental status or loss of consciousness. Denies headache. Denies weakness or paralysis or loss of use of either side. Denies problems with gait or speech. Denies sensory or motor loss. ALL OTHER SYSTEMS REVIEWED AND NEGATIVE. Physical Exam - Vital signs Vitals: Temp Pulse Resp BP Pulse Ox 99.6 F 118 H 22 H 135/75 H 99 02/13/19 02:17 02/13/19 02:17 02/13/19 02:17 02/13/19 02:17 02/13/19 02:17 - Notes Notes: General Appearance: Well nourished, alert, cooperative, no acute distress, no obvious discomfort. Well-appearing. Vitals: reviewed, See vital signs table. Eyes: PERRL, EOMI, Conjuctiva clear Mouth: No decreasd moisture Extremities: strength 5/5 in all extremities, good pulses in all extremities, there is slight swelling to the lateral malleolus of the right ankle. Tenderness to palpation over the dorsum of the foot and lateral parts of the ankle., no edema. Skin: warm, dry, appropriate color, no rash Neuro: speech clear, oriented x 3, normal affect, responds appropriately to questions. Course - Re-evaluation Re-evalutation: 02/13/19 06:25 Patient feels much improved after Toradol. Her pain is gone. She has no nausea or vomiting. She looks well. She asked us to dispose of the Ultram. The nursing staff did dispose of the medication for her. She is encouraged to take Tylenol Motrin for her pain and to continue use her crutches to stay no nweightbearing of her foot. Patient to return to the ER if she has any further concerns. Patient agrees with plan and will be discharged home. Dictation of this chart was performed using voice recognition software; therefore, there may be some unintended grammatical errors. - Vital Signs Vital signs: Temp Pulse Resp BP Pulse Ox 99.1 F 105 H 18 119/71 99 02/13/19 04:19 02/13/19 04:19 02/13/19 04:19 02/13/19 04:19 02/13/19 04:19 Discharge - Discharge Clinical Impression: Ankle pain, right Condition: Good Disposition: HOME, SELF-CARE Additional Instructions: Suspect her body aches is related to a reaction to the tramadol. Please stop taking the tramadol. Please take ibuprofen and Tylenol for pain in your ankle. Continue to use your crutches. Stay off your ankle. Please return to the ER if you have vomiting, fevers, worsening pain, or if you have any further concerns. Forms: Return to Work
[2019-02-13 06:34] VITALS: BP 104/60
== END 2019-02-13 06:37 | disposition home or self-care (01) ==
LOC: ER 02:11
DX: S93.409A Sprain of unspecified ligament of unspecified ankle, initial encounter (principal); M25.571 Pain in right ankle and joints of right foot; W23.0XXA Caught, crushed, jammed, or pinched between moving objects, initial encounter; Y93.89 Activity, other specified; Y99.0 Civilian activity done for income or pay; R20.2 Paresthesia of skin
CPT/HCPCS: 99283; J1885

== ENCOUNTER 2019-02-14 16:19 | Emergency (ER) | payer BC, OTHER ==
--- NOTE | 2019-02-14 17:19 | ER Document Report ---
ED Medical Screen (RME) - General Chief Complaint: Rectal Bleeding Stated Complaint: RECTAL BLEEDING Time Seen by Provider: 02/14/19 17:17 Mode of Arrival: Ambulatory Information source: Patient Notes: 23-year-old female presented to ED for complaint of rectal bleeding since 4 PM today. She states she has been having hard stools for several days she is sprained her ankle recently and they put on tramadol and she was having a reaction that they came in last night received Toradol but then this afternoon when she had a bowel movement there was a lot of blood in the stool according to the patient. She states the water turned red. She states she also noted little clots on the toilet paper. She states she had hard stools in the past and never had this much blood with them before. Patient is alert oriented respirations regular unlabored nontoxic in appearance vital signs are stable. She states she called the emergency room and the nurse in the emergency room told her to come to the emergency room to be checked out. I have greeted and performed a rapid initial assessment of this patient. A comprehensive ED assessment and evaluation of the patient, analysis of test results and completion of medical decision making process will be conducted by an additional ED providers. Dictation of this chart was performed using voice recognition software; therefore, there may be some unintended grammatical errors. TRAVEL OUTSIDE OF THE [place] IN LAST 30 DAYS: No - Related Data Allergies/Adverse Reactions: tramadol Adverse Reaction (Verified 02/14/19 16:25) Past Medical History Renal/ Medical History: Denies: Hx Peritoneal Dialysis Physical Exam - Vital signs Vitals: Temp Pulse Resp BP Pulse Ox 97.9 F 74 16 113/61 98 02/14/19 16:27 02/14/19 16:27 02/14/19 16:27 02/14/19 16:27 02/14/19 16:27 Course - Vital Signs Vital signs: Temp Pulse Resp BP Pulse Ox 97.9 F 74 16 113/61 98 02/14/19 16:27 02/14/19 16:27 02/14/19 16:27 02/14/19 16:27 02/14/19 16:27
[2019-02-14 18:36] LABS: ABSOLUTE EOSINOPHILS # (AUTO) 0.1 10^3/uL (0.0-0.6); ABSOLUTE LYMPHOCYTES (AUTO) 1.3 10^3/uL (0.5-4.7); ABSOLUTE MONOCYTES (AUTO) 0.4 10^3/uL (0.1-1.4); BASOPHILS % (AUTO) 0.7 % (0-2); EOSINOPHILS % (AUTO) 2.4 % (0-6); HEMATOCRIT 38.2 % (36.0-47.0); HEMOGLOBIN 13.3 g/dL (12.0-15.5); LYMPHOCYTES % (AUTO) 33.8 % (13-45); MEAN CORPUSCULAR HGB CONC 34.7 g/dL (32.0-36.0); MEAN CORPUSCULAR VOLUME 83 fl (80-97); MONOCYTES % (AUTO) 11.3 % (3-13); PLATELET COUNT 226 10^3/uL (150-450); RED BLOOD COUNT 4.58 10^6/uL (3.72-5.28); RED CELL DISTRIBUTION WIDTH 13.7 % (11.5-14.0); SEGMENTED NEUTROPHILS % (AUTO) 51.8 % (42-78); TOTAL CELLS COUNTED % (AUTO) 100 %; WHITE BLOOD COUNT 3.9 10^3/uL (4.0-10.5)
[2019-02-14 18:47] LABS: APPEARANCE,URINE SLIGHTLY-CLOUDY; BILIRUBIN,URINE NEGATIVE (NEGATIVE); COLOR,URINE YELLOW; GLUCOSE, URINE NEGATIVE (NEGATIVE); KETONES,URINE NEGATIVE (NEGATIVE); LEUKOCYTE ESTERASE,URINE MODERATE (NEGATIVE); NITRITE,URINE NEGATIVE (NEGATIVE); PROTEIN,URINE NEGATIVE (NEGATIVE); URINE SPECIFIC GRAVITY 1.019; UROBILINOGEN,URINE NEGATIVE mg/dL (<2.0)
[2019-02-14 19:02] LABS: ALANINE AMINOTRANSFERASE 45 U/L (9-52); ALBUMIN 3.9 g/dL (3.5-5.0); ALKALINE PHOSPHATASE 91 U/L (38-126); ANION GAP 7 (5-19); ASPARTATE AMINO TRANSFERASE 43 U/L (14-36); BILIRUBIN,DIRECT 0.3 mg/dL (0.0-0.4); BILIRUBIN,TOTAL 0.4 mg/dL (0.2-1.3); BLOOD UREA NITROGEN 12 mg/dL (7-20); CALCIUM 9.1 mg/dL (8.4-10.2); CARBON DIOXIDE 25 mmol/L (22-30); CHLORIDE 107 mmol/L (98-107); GLUCOSE 92 mg/dL (75-110); POTASSIUM 4.2 mmol/L (3.6-5.0); SODIUM 139.4 mmol/L (137-145)
--- NOTE | 2019-02-14 21:22 | ER Document Report ---
ED GI Bleed / Rectal Pain - General Chief Complaint: Rectal Bleeding Stated Complaint: RECTAL BLEEDING Time Seen by Provider: 02/14/19 17:17 Primary Care Provider: BRANDON TORRES MD [ACTIVE STAFF] - Follow up in 1 week Mode of Arrival: Ambulatory Notes: Patient is a 23-year-old female that comes to the emergency department for chief complaint of rectal bleeding since 4 PM today. She does report she is having hard stools for the past few days, she has had rectal bleeding in the past, however she filled the bottom of the toilet bowl earlier and has never had bleeding like this. She denies abdominal pain. She denies fever/chills, nausea/vomiting. She denies any daily medications or medical problems. She denies any surgeries. Mother at bedside. TRAVEL OUTSIDE OF THE [place] IN LAST 30 DAYS: No - Related Data Allergies/Adverse Reactions: tramadol Adverse Reaction (Verified 02/14/19 16:25) Past Medical History - General Information source: Patient - Social History Smoking Status: Never Smoker Chew tobacco use (# tins/day): No Frequency of alcohol use: None Drug Abuse: None Lives with: Family Family History: Reviewed & Not Pertinent Patient has suicidal ideation: No Patient has homicidal ideation: No Renal/ Medical History: Denies: Hx Peritoneal Dialysis Review of Systems - Review of Systems Constitutional: No symptoms reported EENT: No symptoms reported Cardiovascular: No symptoms reported Respiratory: No symptoms reported Gastrointestinal: See HPI Genitourinary: No symptoms reported Female Genitourinary: No symptoms reported Musculoskeletal: No symptoms reported Skin: No symptoms reported Hematologic/Lymphatic: No symptoms reported Neurological/Psychological: No symptoms reported Physical Exam - Vital signs Vitals: Temp Pulse Resp BP Pulse Ox 97.9 F 74 16 113/61 98 02/14/19 16:27 02/14/19 16:27 02/14/19 16:27 02/14/19 16:27 02/14/19 16:27 - Notes Notes: GENERAL: Alert, interacts well. No acute distress. HEAD: Normocephalic, atraumatic. EYES: Pupils equal, round, and reactive to light. Extraocular movements intact. ENT: Oral mucosa moist, tongue midline. Oropharynx unremarkable. Airway patent. Nares patent, no nasal septal hematoma, TM's intact. NECK: Full range of motion. Supple. Trachea midline. LUNGS: Clear to auscultation bilaterally, no wheezes, rales, or rhonchi. No respiratory distress. HEART: Regular rate and rhythm. No murmur ABDOMEN: Soft, non-tender. Non-distended. Bowel sounds present in all 4 quadrants. GENITOURINARY: Deferred RECTAL: Normal appearing stool, normal external and internal exam, no masses, hemorrhoids, fissures or other abnormality noted. Exam performed with Buffy GOMEZ at bedside. EXTREMITIES: Moves all 4 extremities spontaneously. No edema, normal radial and dorsalis pedis pulses bilaterally. No cyanosis. BACK: no cervical, thoracic, lumbar midline tenderness. No saddle anesthesia, normal distal neurovascular exam. Moves all extremities in full range of motion. NEUROLOGICAL: Alert and oriented x3. Normal speech. Cranial nerves II through XII grossly intact. PSYCH: Normal affect, normal mood. SKIN: Warm, dry, normal turgor. No rashes or lesions noted. Course - Re-evaluation Re-evalutation: Laboratory work-up is unremarkable. CBC without anemia, chemistry unremarkable, urine with some contamination but possible UTI. I discussed this with patient and we decided to culture instead of treat because she has no UTI symptoms. On physical exam patient does not have external or internal hemorrhoid noted, no fissure, no abnormality on rectal exam. She does have positive Hemoccult on the lab but not grossly passing any stool with blood at this time. Only has some bleeding with bowel movements. She has recently had hard stools and will be placed on a stool softener. Nontender abdomen. I discussed the importance of gastroenterology follow-up because we cannot find the source of her lower GI bleed (although constipation still appears to be a component), she states she will follow-up closely. I discussed return precautions in detail as well. Patient and family state understanding and agreement with plan. - Vital Signs Vital signs: Temp Pulse Resp BP Pulse Ox 97.6 F 63 16 107/68 99 02/14/19 21:30 02/14/19 21:30 02/14/19 16:27 02/14/19 21:30 02/14/19 21:30 - Laboratory Result Diagrams: 02/14/19 18:13 02/14/19 18:13 Laboratory results interpreted by me: 02/14/19 02/14/19 02/14/19 18:13 18:13 18:25 WBC 3.9 L Creatinine 0.51 L AST 43 H Urine Blood LARGE H Ur Leukocyte Esterase MODERATE H Discharge - Discharge Clinical Impression: Rectal bleeding Condition: Stable Disposition: HOME, SELF-CARE Additional Instructions: Your blood counts are normal. You do have blood in your stool, however I do not know the exact source of bleeding based on your physical exam. I do recommend the stool softener for the next several days and then increased fiber in your diet, because of the bleeding and no obvious source please follow-up with the gastroenterology referral for additional management as we discussed to avoid any long-term complications. Return if you worsen including heavy bleeding, abdominal pain, fever, vomiting, passing out, or any other concerning symptoms. Prescriptions: Docusate Sodium [Colace 100 mg Capsule] 100 mg PO ASDIR PRN #30 capsule PRN Reason: Referrals: BRANDON TORRSE MD [ACTIVE STAFF] - Follow up in 1 week
[2019-02-14 21:45] VITALS: BP 107/68
== END 2019-02-14 21:48 | disposition home or self-care (01) ==
LOC: ER 16:19
DX: K62.5 Hemorrhage of anus and rectum (principal)
CPT/HCPCS: 36415; 80053; 81001; 84703; 85025; 86850; 86900; 86901; 87086; 99283

== ENCOUNTER → 2020-02-09 | Outpatient (CLI) | payer BC ==
--- NOTE | 2020-02-09 16:44 | RADIOLOGY REPORT (SQ) ---
EXAM DESCRIPTION: U/S ABDOMEN LIMITED W/O DOP IMAGES COMPLETED DATE/TIME: 02/09/2020 4:16 pm REASON FOR STUDY: K80.19 CALCULUS OF GALLBLADDER W OTH CHOLECYSTITIS WITH OBSTRUCTION K80.19 CALCUL US OF GALLBLADDER W OTH CHOLECYSTITIS WITH OBST COMPARISON: Ultrasound of the abdomen from 01/05/2018. TECHNIQUE: Dynamic and static grayscale images acquired of the abdomen and recorded on PACS. Additio nal selected color Doppler and spectral images recorded. LIMITATIONS: None. FINDINGS: PANCREAS: The visualized portions of the pancreas appear normal. The pancreatic tail is o bscured by overlying bowel. LIVER: Normal contour and echotexture of the liver. LIVER VASCULATURE: Hepatopetal directional flow in the portal veins. GALLBLADDER: There is shadowing echogenic calculi within the gallbladder lumen. The gallbladder wall is normal in thickness measuring 2.1 mm. There is no pericholecystic fluid. ULTRASOUND-DETECTED KING'S SIGN: Negative. INTRAHEPATIC DUCTS AND COMMON DUCT: The common bile duct measures 2.7 mm in diameter. There is no di latation of the intrahepatic bile ducts. INFERIOR VENA CAVA: Not assessed. AORTA: No aneurysm. RIGHT KIDNEY: The right kidney measures 10.3 cm in length. There is no hydronephrosis. PERITONEAL AND RIGHT PLEURAL SPACE: No ascites or effusions. OTHER: No other findings. IMPRESSION: 1. Cholelithiasis without other associated ancillary findings to indicate an acute shivani cystitis. 2. Partial visualization of the pancreas due to overlying bowel gas. TECHNICAL DOCUMENTATION: JOB ID: [id number] 2010 [employer]- All Rights Reserved Reading location - IP/workstation name: [email or web address]
== END ==
LOC: RAD 15:50
PROVIDERS: ATTEND Advanced Practice Midwife
DX: O99.611 Diseases of the digestive system complicating pregnancy, first trimester (principal); K80.20 Calculus of gallbladder without cholecystitis without obstruction; Z3A.08 8 weeks gestation of pregnancy
CPT/HCPCS: 76705

== ENCOUNTER 2020-06-02 11:16 | Outpatient (CLI) | payer BC ==
[2020-06-02] MEDS ORDERED: LOPERAMIDE HCL 2 MG CAPSULE PO ONE (11:31)
[2020-06-02] MEDS ORDERED: HYDROXYZINE PAMOATE 50 MG CAPSULE PO ONE (11:31)
[2020-06-02] MEDS ORDERED: LOPERAMIDE HCL 2 MG CAPSULE ONE (11:54)
[2020-06-02] MEDS ORDERED: HYDROXYZINE PAMOATE 50 MG CAPSULE ONE (11:55)
[2020-06-02 12:22] LABS: ABSOLUTE LYMPHOCYTES (AUTO) 1.7 10^3/uL (0.5-4.7); ABSOLUTE MONOCYTES (AUTO) 0.5 10^3/uL (0.1-1.4); ABSOLUTE NEUT (AUTO) 9.4 10^3/uL (1.7-8.2); BASOPHILS % (AUTO) 0.1 % (0-2); EOSINOPHILS % (AUTO) 0.3 % (0-6); HEMATOCRIT 35.3 % (36.0-47.0); HEMOGLOBIN 12.5 g/dL (12.0-15.5); LYMPHOCYTES % (AUTO) 14.6 % (13-45); MEAN CORPUSCULAR HEMOGLOBIN 29.9 pg (27.0-33.4); MEAN CORPUSCULAR HGB CONC 35.4 g/dL (32.0-36.0); MEAN CORPUSCULAR VOLUME 84 fl (80-97); MONOCYTES % (AUTO) 4.4 % (3-13); PLATELET COUNT 246 10^3/uL (150-450); RED BLOOD COUNT 4.19 10^6/uL (3.72-5.28); RED CELL DISTRIBUTION WIDTH 12.8 % (11.5-14.0); SEGMENTED NEUTROPHILS % (AUTO) 80.6 % (42-78); TOTAL CELLS COUNTED % (AUTO) 100 %; WHITE BLOOD COUNT 11.7 10^3/uL (4.0-10.5)
[2020-06-02 12:38] LABS: ALBUMIN 3.6 g/dL (3.5-5.0); ALKALINE PHOSPHATASE 122 U/L (38-126); ANION GAP 10 (5-19); ASPARTATE AMINO TRANSFERASE 26 U/L (14-36); BILIRUBIN,DIRECT 0.3 mg/dL (0.0-0.4); BILIRUBIN,TOTAL 0.5 mg/dL (0.2-1.3); BLOOD UREA NITROGEN 9 mg/dL (7-20); CALCIUM 9.4 mg/dL (8.4-10.2); CARBON DIOXIDE 22 mmol/L (22-30); CHLORIDE 103 mmol/L (98-107); GLUCOSE 75 mg/dL (75-110); POTASSIUM 4.1 mmol/L (3.6-5.0); TOTAL PROTEIN 6.3 g/dL (6.3-8.2)
== END 2020-06-02 12:58 | disposition home or self-care (01) ==
LOC: LC 11:16
PROVIDERS: ATTEND Obstetrics & Gynecology
DX: O99.612 Diseases of the digestive system complicating pregnancy, second trimester (principal); K52.9 Noninfective gastroenteritis and colitis, unspecified; Z3A.24 24 weeks gestation of pregnancy
CPT/HCPCS: 36415; 80053; 85025; 94760

== ENCOUNTER 2020-06-03 10:41 | Emergency (ER) | payer BC ==
--- NOTE | 2020-06-03 12:12 | ER Document Report ---
ED Medical Screen (RME) - General Stated Complaint: ABDOMINAL PAIN Time Seen by Provider: 06/03/20 12:02 Primary Care Provider: ADAM ENRIQUEZ MD [Primary Care Provider] - Follow up as needed TRAVEL OUTSIDE OF THE [place] IN LAST 30 DAYS: No - HPI Notes: 06/03/20 12:13 25-year-old female 25 weeks to the emergency department with complaints of abdominal pain that began 2 nights ago. She states that she was seen by Dr. Castillo yesterday but her pain has continued today. She was advised by her primary care Dr. Gr to come to the emergency department. She denies any vaginal bleeding. She denies any diarrhea, fevers, chills. I called labor and delivery to send her directly but was advised by charge nurse Anna Marie by Dr. Castillo who is the [employer] personalization specialist once the patient evaluated in the emergency department. I advised charge nurse of the conversation. She will move patient into a bed since possible. I performed a brief medical screening exam on the patient determined that the patient needs further evaluation and management by main side provider. I have placed initial orders to help expedite care. - Related Data Allergies/Adverse Reactions: tramadol Adverse Reaction (Verified 06/03/20 12:02) Past Medical History Renal/ Medical History: Denies: Hx Peritoneal Dialysis Physical Exam - Vital signs Vitals: Temp Pulse Resp BP Pulse Ox 97.9 F 84 16 108/62 99 06/03/20 11:25 06/03/20 11:25 06/03/20 11:25 06/03/20 11:25 06/03/20 11:25 Course - Vital Signs Vital signs: Temp Pulse Resp BP Pulse Ox 97.9 F 84 16 108/62 99 06/03/20 11:25 06/03/20 11:25 06/03/20 11:25 06/03/20 11:25 06/03/20 11:25 Doctor's Discharge - Discharge Referrals: ADAM ENRIQUEZ MD [Primary Care Provider] - Follow up as needed
[2020-06-03 13:02] LABS: ABSOLUTE LYMPHOCYTES (AUTO) 1.8 10^3/uL (0.5-4.7); ABSOLUTE MONOCYTES (AUTO) 0.5 10^3/uL (0.1-1.4); ABSOLUTE NEUT (AUTO) 8.4 10^3/uL (1.7-8.2); BASOPHILS % (AUTO) 0.3 % (0-2); EOSINOPHILS % (AUTO) 0.3 % (0-6); HEMATOCRIT 37.6 % (36.0-47.0); HEMOGLOBIN 13.2 g/dL (12.0-15.5); LYMPHOCYTES % (AUTO) 16.3 % (13-45); MEAN CORPUSCULAR HEMOGLOBIN 29.8 pg (27.0-33.4); MEAN CORPUSCULAR VOLUME 85 fl (80-97); MONOCYTES % (AUTO) 4.7 % (3-13); PLATELET COUNT 274 10^3/uL (150-450); RED BLOOD COUNT 4.43 10^6/uL (3.72-5.28); RED CELL DISTRIBUTION WIDTH 12.9 % (11.5-14.0); SEGMENTED NEUTROPHILS % (AUTO) 78.4 % (42-78); TOTAL CELLS COUNTED % (AUTO) 100 %; WHITE BLOOD COUNT 10.7 10^3/uL (4.0-10.5)
[2020-06-03 13:13] LABS: APPEARANCE,URINE CLEAR; BILIRUBIN,URINE NEGATIVE (NEGATIVE); COLOR,URINE YELLOW; GLUCOSE, URINE NEGATIVE (NEGATIVE); KETONES,URINE NEGATIVE (NEGATIVE); PROTEIN,URINE NEGATIVE (NEGATIVE); URINE SPECIFIC GRAVITY 1.009; UROBILINOGEN,URINE NEGATIVE mg/dL (<2.0)
[2020-06-03 13:25] LABS: ALBUMIN 3.8 g/dL (3.5-5.0); ALKALINE PHOSPHATASE 137 U/L (38-126); ANION GAP 7 (5-19); ASPARTATE AMINO TRANSFERASE 30 U/L (14-36); BILIRUBIN,DIRECT 0.3 mg/dL (0.0-0.4); BILIRUBIN,TOTAL 0.4 mg/dL (0.2-1.3); BLOOD UREA NITROGEN 10 mg/dL (7-20); CALCIUM 9.5 mg/dL (8.4-10.2); CARBON DIOXIDE 25 mmol/L (22-30); CHLORIDE 104 mmol/L (98-107); GLUCOSE 80 mg/dL (75-110); POTASSIUM 4.2 mmol/L (3.6-5.0); TOTAL PROTEIN 7.1 g/dL (6.3-8.2)
[2020-06-03] MEDS ORDERED: DICYCLOMINE HCL 20 MG TABLET PO ONE (16:56)
[2020-06-03] MEDS ORDERED: DICYCLOMINE HCL INJ 20 MG/2 ML AMPULE IM ONE (17:00)
--- NOTE | 2020-06-03 17:11 | ER Document Report ---
Entered by JOSH MALONEY SCRIBE 06/03/20 3039 Acting as scribe for:ML LAFLEUR MD ED GI/ - General Chief Complaint: Diarrhea Stated Complaint: ABDOMINAL PAIN Time Seen by Provider: 06/03/20 12:02 Primary Care Provider: ADAM ENRIQUEZ MD [ACTIVE PROVISIONAL STAFF] - Follow up as needed Information source: Patient Notes: This 25 year old female patient that is 25 weeks presents to the emergency department today with complaints of lower abdominal cramping since sunday. Patient was seen here in this emergency department yesterday for this cramping and diarrhea that she had for two weeks. She was given Imodium for the diarrhea and she went upstairs for a labor check and she was told these were not contractions and she was discharged home. She reports that she thinks the Imodium has helped the diarrhea as she has not had any since yesterday. Patient reports that her lower abdominal cramping used to come and go and only last for a few seconds but she mentions that for the last hour the lower cramping has been constant. There is no vaginal discharge or bleeding. TRAVEL OUTSIDE OF THE [place] IN LAST 30 DAYS: No - Related Data Allergies/Adverse Reactions: tramadol Adverse Reaction (Verified 06/03/20 12:02) Home Medications: . prilosec Past Medical History - General Information source: Patient - Social History Smoking Status: Never Smoker Cigarette use (# per day): No Chew tobacco use (# tins/day): No Frequency of alcohol use: None Drug Abuse: None Occupation: [employer] [place] at [employer] Lives with: Family Family History: Reviewed & Not Pertinent Patient has homicidal ideation: No GI Medical History: Reports: Hx Gastroesophageal Reflux Disease, Hx Ulcer, Other - reports "tear in colon that healed itself from NSAID usage" Surgical Hx: Negative Review of Systems - Review of Systems Constitutional: No symptoms reported EENT: No symptoms reported Cardiovascular: No symptoms reported Respiratory: No symptoms reported Gastrointestinal: See HPI, Abdominal pain, Diarrhea Genitourinary: No symptoms reported Female Genitourinary: See HPI, - 25 weeks Musculoskeletal: No symptoms reported Skin: No symptoms reported Hematologic/Lymphatic: No symptoms reported Neurological/Psychological: No symptoms reported -: Yes All other systems reviewed and negative Physical Exam - Vital signs Vitals: Temp Pulse Resp BP Pulse Ox 97.9 F 84 16 108/62 99 06/03/20 11:25 06/03/20 11:25 06/03/20 11:25 06/03/20 11:25 06/03/20 11:25 - Notes Notes: Physical Exam: General: Alert, appears well. HEENT: Normocephalic. Atraumatic. PERRL. Extraocular movements intact. Oropharynx clear. Neck: Supple. Non-tender. Respiratory: No respiratory distress. Clear and equal breath sounds bilaterally. Cardiovascular: Regular rate and rhythm. Abdominal: Normal Inspection. Non-tender. No distension. Normal Bowel Sounds. Back: No gross abnormalities. Extremities: Moves all four extremities. Upper extremities: Normal inspection. Normal ROM. Lower extremities: Normal inspection. No edema. Normal ROM. Neurological: Normal cognition. AAOx4. Normal speech. Psychological: Normal affect. Normal Mood. Skin: Warm. Dry. Normal color. Course - Re-evaluation Re-evalutation: 06/03/20 18:49 Patient's stool had no WBCs. I reviewed the monitoring from L&D last night and she had 1 contraction lasting 50 seconds. She reports that the cramping in her lower abdomen has eased off since the Bentyl, but now she feels a cramp traveling straight up the middle of her abdomen. I did discuss the case with Dr. Castlilo who knew the patient well, he saw her in the office yesterday and sent her over here. He is agreeable to sending her back upstairs to monitor again. 06/03/20 18:50 - Vital Signs Vital signs: Temp Pulse Resp BP Pulse Ox 97.9 F 84 16 108/62 99 06/03/20 12:02 06/03/20 11:25 06/03/20 11:25 06/03/20 11:25 06/03/20 11:25 - Laboratory Result Diagrams: 06/03/20 12:27 06/03/20 12:27 Laboratory results interpreted by me: 06/03/20 06/03/20 06/03/20 12:27 12:27 12:27 WBC 10.7 H Absolute Neuts (auto) 8.4 H Seg Neutrophils % 78.4 H Sodium 135.9 L Creatinine 0.43 L ALT 36 H Alkaline Phosphatase 137 H Leukocyte Esterase Rfl MODERATE H Discharge - Discharge Clinical Impression: Abdominal cramps, 25 weeks gestation of Condition: Stable Disposition: HOME, SELF-CARE Unit Admitted: Labor and Delivery Additional Instructions: Abdominal Pain There are many causes of abdominal pain. Pain can mean a serious problem requiring surgery (such as appendicitis). It can also be an innocent problem that goes away on its own (such as a viral infection). Often, time must pass to determine the cause of pain. The physician does not feel that hospitalization is necessary, at present. Things may change within the next 24 hours. Call the doctor or come back for re- examination if any problems occur, such as: (1) Pain that becomes more severe, steady, or becomes concentrated in one specific area. Also, pain that is more severe with movement or coughing. (2) Vomiting that persists or becomes more frequent. (3) Blood in the vomitus, urine, or bowel movements. Blood in the stool may have a tarry or black appearance. (4) Shaking chills or fever greater than 100 degrees F. (5) The abdomen becomes more distended or swollen. (6) Bowel movements cease. (7) Failure to improve as expected. It is unclear whether your abdominal discomfort is due to intestinal cramping, or uterine contractions. You be sent up to labor and delivery for monitoring and should follow-up with [facility] tomorrow for recheck in the office. Referrals: ADAM ENRIQUEZ MD [ACTIVE PROVISIONAL STAFF] - Follow up as needed I personally performed the services described in the documentation, reviewed and edited the documentation which was dictated to the scribe in my presence, and it accurately records my words and actions.
[2020-06-03 18:51] LABS: C DIFFICILE GDH NEGATIVE (NEGATIVE)
[2020-06-03 19:17] VITALS: BP 101/62
== END 2020-06-03 19:17 | disposition home or self-care (01) ==
LOC: ER 10:41
DX: O26.92 Pregnancy related conditions, unspecified, second trimester (principal); R10.30 Lower abdominal pain, unspecified; R19.7 Diarrhea, unspecified; Z3A.25 25 weeks gestation of pregnancy
CPT/HCPCS: 99284; 36415; 87045; 87086; 89055; 87205; 83690; 85025; 80053; 81001; 87324; 87449; J0500

== ENCOUNTER 2020-06-03 19:27 | Outpatient (CLI) | payer BC | END 2020-06-03 20:49 | disposition home or self-care (01) | LOC: LC 19:27 | PROVIDERS: ATTEND Obstetrics & Gynecology Gynecology | DX: O26.892 Other specified pregnancy related conditions, second trimester (principal); K52.9 Noninfective gastroenteritis and colitis, unspecified; Z3A.24 24 weeks gestation of pregnancy ==

== ENCOUNTER 2020-08-25 08:40 | Inpatient (IN) | payer BC ==
[2020-08-25] MEDS ORDERED: RINGERS SOLUTION,LACTATED 500 ML IV ONE (08:48)
[2020-08-25] MEDS ORDERED: RINGERS SOLUTION,LACTATED 1,000 ML IV PRN (08:48)
[2020-08-25] MEDS ORDERED: PENICILLIN G POTASSIUM 5,000,000 UNIT in DEXTROSE 5%-WATER 100 ML IV ONE (08:58)
--- NOTE | 2020-08-25 09:21 | Admission Physical ---
Datetime Report Generated by CPN: 08/25/2020 09:20 CURRENT ADMISSION Indication for Induction- Other: cholestasis in , elevated bile acids Admit Impression : No Active Labor; Intact Membranes Admit Plan: Admit to Unit; Initiate Labor Induction Protocol ALLERGIES Medication Allergies: Yes Medication Allergies: ibuprofen (08/25/2020); tramadol (06/03/2020) Latex: No Latex Allergies OBSTETRICAL HISTORY EDC: 09/16/2020 00:00 : 2 Para: 1 Term: 0 : 1 SAB: 0 IAB: 0 Ectopic: 0 Livin Cesareans: 0 VBACs: 0 Multiple Births: 0 Gestational Diabetes: No Rh Sensitization: No Incompetent Cervix: No LATOYA: No Infertility: No ART Treatment: No Uterine Anomaly: No IUGR: No Hx Previous C/S: No Macrosomia: No Hx Loss/Stillborn: No PIH: No Hx : No Placenta Previa/Abruption: No Depression/PP Depression: No PTL/PROM: No Post Hemorrhage: No Obstetrical History Comments: G1: 2018; 36.6 6lbs, vag female induced choleostasis, PP pnemonia G2: current SEE RECORDS Alcohol: No Marijuana : No Cocaine: No Other Illicit Drugs: No Cigarettes: Never Smoker. [id number] MEDICAL HISTORY Diabetes: No Blood Transfusion: No Pulmonary Disease (Asthma, TB): No Breast Disease: No Hypertension: No Loss Prevention Lead Surgery: No Heart Disease: No Hosp/Surgery: Yes Autoimmune Disorder: No Anesthetic Complications: No Kidney Disease: No Abnormal Pap Smear: No Neuro/Epilepsy: No Psychiatric Disorders: Yes Other Medical Diseases: No Hepatitis/Liver Disease: No Significant Family History: No Varicosities/Phlebitis: No Trauma/Violence : No Thyroid Dysfunction: No Medical History Comments: PP depression INFECTIOUS HISTORY Gonorrhea: No Genital Herpes: No Chlamydia: No Tuberculosis: No Syphilis: No Hepatitis: No HIV/AIDS Exposure: No Rash or Viral Illness: No HPV: No PHYSICAL EXAM General: Normal HEENT: Normal Neurologic: Normal Thyroid: Normal Heart: Normal Lungs: Normal Breast: Normal Back: Normal Abdomen: Normal Genitourinary Exam: Normal Extremities: Normal DTRs: Normal Pelvic Type: Adequate Vital Signs: Reviewed VAGINAL EXAM Dilatation: 1 Effacement: 80 Station: -1 MEMBRANES Membranes: Intact FETUS A Monitoring: External US FHR- Baseline: 135 Variability: Moderate 6-25bpm Accelerations: 15X15 Decelerations: None FHR Category: Category I Admit Comment: at 36.3 wks, presents for IOL due to cholestasis in w/ elevated Bile Acids. s/p Betamethasone x 2. GBS negative. Pt doing well this morning, no complaints. VE loose /-1, vtx on leapold's. EFW 5 lbs 6 ounces. PLan of care discussed, will start Routine Pitocin. Pt does plan an epidural when in active labor. Attending MD is Dr Patel, agrees with plan of care. PLANS FOR LABOR AND DELIVERY Labor and Delivery: None Pain Management: Epidural Feeding Preference: Breast Circumcision: N/A INFORMED CONSENT Assignment: Rosemary Patel MD Signature: with User ID: Charito : with User ID: Charito
[2020-08-25] MEDS ORDERED: OXYTOCIN/0.9 % SODIUM CHLORIDE 30 UNIT/500 ML RTUINJ IV PRN ×2 (09:24→19:33)
[2020-08-25] MEDS ORDERED: MISOPROSTOL 0.2 MG TABLET ONE (09:30)
[2020-08-25] MEDS ORDERED: OXYTOCIN 10 UNIT/ML VIAL ONE (09:30)
[2020-08-25] MEDS ORDERED: OXYTOCIN/0.9 % SODIUM CHLORIDE 30 UNIT/500 ML RTUINJ ONE (09:31)
[2020-08-25] MEDS ORDERED: PANTOPRAZOLE SODIUM 40 MG TABLET.DR PO ONE (09:31)
[2020-08-25] MEDS ORDERED: LIDOCAINE 1% INJ-PF (10 MG/ML) 30 ML SDV ONE (09:31)
[2020-08-25] MEDS: PANTOPRAZOLE SODIUM 40 MG TABLET.DR PO SCH (09:33)
[2020-08-25 09:54] LABS: ABSOLUTE LYMPHOCYTES (AUTO) 1.5 10^3/uL (0.5-4.7); ABSOLUTE MONOCYTES (AUTO) 0.5 10^3/uL (0.1-1.4); ABSOLUTE NEUT (AUTO) 9.2 10^3/uL (1.7-8.2); BASOPHILS % (AUTO) 0.2 % (0-2); HEMATOCRIT 31.5 % (36.0-47.0); HEMOGLOBIN 10.6 g/dL (12.0-15.5); LYMPHOCYTES % (AUTO) 13.1 % (13-45); MEAN CORPUSCULAR HEMOGLOBIN 26.2 pg (27.0-33.4); MEAN CORPUSCULAR HGB CONC 33.7 g/dL (32.0-36.0); MEAN CORPUSCULAR VOLUME 78 fl (80-97); MONOCYTES % (AUTO) 4.6 % (3-13); PLATELET COUNT 312 10^3/uL (150-450); RED BLOOD COUNT 4.06 10^6/uL (3.72-5.28); RED CELL DISTRIBUTION WIDTH 12.6 % (11.5-14.0); SEGMENTED NEUTROPHILS % (AUTO) 82.1 % (42-78); TOTAL CELLS COUNTED % (AUTO) 100 %; WHITE BLOOD COUNT 11.1 10^3/uL (4.0-10.5)
[2020-08-25 09:58] LABS: APPEARANCE,URINE SLIGHTLY-CLOUDY; BILIRUBIN,URINE NEGATIVE (NEGATIVE); COLOR,URINE YELLOW; GLUCOSE, URINE NEGATIVE (NEGATIVE); KETONES,URINE NEGATIVE (NEGATIVE); LEUKOCYTE ESTERASE,URINE LARGE (NEGATIVE); NITRITE,URINE NEGATIVE (NEGATIVE); PROTEIN,URINE NEGATIVE (NEGATIVE); URINE SPECIFIC GRAVITY 1.011; UROBILINOGEN,URINE NEGATIVE mg/dL (<2.0)
[2020-08-25] MEDS ORDERED: PRENATAL VITAMIN W DHA CAPSULE PO SCH (10:00)
[2020-08-25] MEDS ORDERED: PRENATAL VIT CALC76 PO SCH (10:00)
[2020-08-25] MEDS ORDERED: [UNRECOGNIZED DRUG - OTHER] PO SCH (10:00)
[2020-08-25] MEDS ORDERED: IRON PO SCH (10:00)
[2020-08-25] MEDS ORDERED: (PENDING PHARMACY ID) (Omeprazole Magnesium [Prilosec Otc] 20 MG Tablet.Dr) PO SCH (10:00)
[2020-08-25] MEDS ORDERED: FOLIC PO SCH (10:00)
[2020-08-25 10:14] LABS: ALBUMIN 3.7 g/dL (3.5-5.0); ALKALINE PHOSPHATASE 198 U/L (38-126); ANION GAP 11 (5-19); ASPARTATE AMINO TRANSFERASE 252 U/L (14-36); BILIRUBIN,DIRECT 0.3 mg/dL (0.0-0.4); BILIRUBIN,TOTAL 0.4 mg/dL (0.2-1.3); BLOOD UREA NITROGEN 12 mg/dL (7-20); CALCIUM 9.7 mg/dL (8.4-10.2); CARBON DIOXIDE 22 mmol/L (22-30); CHLORIDE 104 mmol/L (98-107); GLUCOSE 100 mg/dL (75-110); POTASSIUM 4.3 mmol/L (3.6-5.0)
[2020-08-25] MEDS: URSODIOL 300 MG CAPSULE PO SCH ×3 (10:18→20:16)
[2020-08-25 10:24] LABS: URINE AMPHETAMINES SCREEN NEGATIVE; URINE BARBITURATES SCREEN NEGATIVE; URINE BENZODIAZEPINES SCREEN NEGATIVE; URINE COCAINE SCREEN NEGATIVE; URINE MARIJUANA (THC) SCREEN NEGATIVE; URINE METHADONE SCREEN NEGATIVE; URINE PHENCYCLIDINE SCREEN NEGATIVE
[2020-08-25] MEDS ORDERED: NALBUPHINE HCL INJ 10 MG/1 ML AMPULE ONE ×2 (12:47→12:56)
--- NOTE | 2020-08-25 12:47 | L&D Progress Notes ---
PROGRESS NOTES Datetime Report Generated by CPN: 08/25/2020 12:47 PROGRESS NOTE Procedures: Artificial ROM; Sterile Vag Exam Plan: Continue Present Management; Induction Vital Signs : Reviewed Comment: Pitocin infusing, Ve 2/80/-1, AROM w/ blood tinged fluid noted. pt may have IV pain medication then an epidural once making good cervical change. LFT's elevated, Dr Patel informed. Position changes encouraged. VAGINAL EXAM Dilatation: 1 Effacement: 80 Station: -1 LAST VAGINAL EXAM-NURSING Nursing Exam Dilitation: 2.0 Nursing Exam Effacement: 80 Nursing Exam Station: -2 Nursing Exam Contractions: No contractions noted, patient denies MEMBRANES Membranes: Ruptured Amniotic Fluid Color: Bloody FETUS A Monitoring: External US SIGNATURE SIGNATURE: [id number] Assignment: Rosemary Patel MD Signature: with User ID: Charito : with User ID: Charito
[2020-08-25] MEDS ORDERED: NALBUPHINE HCL INJ 10 MG/1 ML AMPULE INJ ONE (12:55)
[2020-08-25] MEDS ORDERED: PENICILLIN G POTASSIUM 2,500,000 UNIT in DEXTROSE 5%-WATER 50 ML IV SCH (12:59)
[2020-08-25] MEDS ORDERED: EPHEDRINE SULFATE INJ 50 MG/1 ML AMPULE ONE (15:22)
[2020-08-25] MEDS ORDERED: FENTANYL/BUPIVACAINE/NS/PF 300 MCG/150 ML RTUINJ EPI ONE (15:23)
[2020-08-25] MEDS ORDERED: ROPIVACAINE HCL 0.2% INJ/PF (2 MG/ML) 20 ML SDV ONE (15:23)
--- NOTE | 2020-08-25 16:35 | L&D Progress Notes ---
PROGRESS NOTES Datetime Report Generated by CPN: 08/25/2020 16:35 PROGRESS NOTE Procedures: Artificial ROM; Sterile Vag Exam Plan: Continue Present Management; Induction Vital Signs : Reviewed Comment: Epidural in place, pt is comfortable. VE per RN pt is 3 cm at last VE. Will continue with Pitocin IOL. Position changes encouraged. VAGINAL EXAM Dilatation: 1 Effacement: 80 Station: -1 LAST VAGINAL EXAM-NURSING Nursing Exam Dilitation: 2.0 Nursing Exam Effacement: 80 Nursing Exam Station: -2 Nursing Exam Contractions: No contractions noted, patient denies MEMBRANES Membranes: Ruptured Amniotic Fluid Color: Clear FETUS A FHR - Baseline: 140 Monitoring: External US Variability: Moderate 6-25bpm Accelerations: 15X15 Decelerations: None FHR Category: Category I SIGNATURE SIGNATURE: [id number];[id number] Assignment: Rosemary Patel MD Signature: with User ID: Charito : with User ID: Charito
[2020-08-25] MEDS ORDERED: ACETAMINOPHEN WITH CODEINE #3 TABLET PO PRN ×2 (19:33)
[2020-08-25] MEDS ORDERED: ACETAMINOPHEN 325 MG TABLET PO PRN (19:33)
[2020-08-25] MEDS ORDERED: FAMOTIDINE 20 MG TABLET PO PRN (19:33)
[2020-08-25] MEDS ORDERED: ACETAMINOPHEN 650 MG SUPP.RECT PR PRN (19:33)
[2020-08-25] MEDS ORDERED: VARICELLA VACC/PF (1350 UNIT/0.5 ML) 0.5 ML VIAL SUBCUT PRN (19:33)
[2020-08-25] MEDS ORDERED: MAGNESIUM HYDROXIDE SUSP 30 ML UDCUP PO PRN (19:33)
[2020-08-25] MEDS ORDERED: ZOLPIDEM TARTRATE 5 MG TABLET PO PRN (19:33)
[2020-08-25] MEDS ORDERED: PSEUDOEPHEDRINE HCL 30 MG TABLET PO PRN (19:33)
[2020-08-25] MEDS ORDERED: MAG HYDROX/AL HYDROX/SIMETH SUSP 30 ML UDCUP PO PRN (19:33)
[2020-08-25] MEDS ORDERED: DIPHENHYDRAMINE HCL 25 MG CAPSULE PO PRN (19:33)
[2020-08-25] MEDS ORDERED: DIPH/PERTUSS(ACELL)/TETANUS VAC/PF 0.5 ML SYR (>=10YO) IM PRN (19:33)
[2020-08-25] MEDS ORDERED: DIBUCAINE 1% OINTMENT 28 GM TP PRN (19:33)
[2020-08-25] MEDS ORDERED: MEASLES,MUMPS&RUBELLA VACC/PF 0.5 ML VIAL SUBCUT PRN (19:33)
[2020-08-25] MEDS ORDERED: GLYCERIN/WITCH HAZEL LEAF 1 EACH MED..WIPE TP PRN (19:33)
[2020-08-25] MEDS ORDERED: BENZOCAINE/MENTHOL AEROSOL SPRAY 56 ML TOP PRN (19:33)
[2020-08-25] MEDS ORDERED: METHYLERGONOVINE MALEATE 0.2 MG TABLET ONE (20:56)
--- NOTE | 2020-08-25 21:10 | Warning Signs in Babies ---
VOD Warning Signs Datetime Report Generated by [facility]: 08/25/2020 21:10 VOD#608 -Warning Signs in Babies: Viewed with Parent(s)/Family (08/25/2020 20:47:Keena Correa RN)
--- NOTE | 2020-08-25 21:21 | Birth Certificate Data ---
Cert Data Datetime Report Generated by CPN: 08/25/2020 21:21 CERTIFICATE DATA Delivery Provider: Rosemary Patel MD (06/02/2020 11:32:Yael Bejarano RN) 47a. Care: Yes (06/02/2020 11:32:Yael Bejarano RN) 47b. Date of First Visit: 03/10/2020 00:00 (06/02/2020 11:32:Yael Bejarano RN) 47c. Date of Last Visit: 08/23/2020 00:00 (06/02/2020 11:32:Yael Bejarano RN) 47d. Number of Visits: 14 (06/02/2020 11:32:Yael Bejarano RN) 48a. Number of Prev Live Births: 1 (06/02/2020 11:32:Yael Bejarano RN) 48b. Now Livin (06/02/2020 11:32:Dolores Barahona RN) 48c. Live Births Now : 0 (06/02/2020 11:32:QS system process) 48d. Date of Last Live : 01/03/2018 00:00 (06/02/2020 11:32:Yael Bejarano RN) RISK FACTORS IN THIS 49a. Diabetes: No (06/02/2020 11:32:Yael Bejarano RN) 49b. Hypertension: No (06/02/2020 11:32:Yael Bejarano RN) 49c. Previous Births: 1 (06/02/2020 11:32:Dolores Barahona RN) 49d. Stillborns: No (06/02/2020 11:32:Yael Bejarano RN) 49d. IUGR: No (06/02/2020 11:32:Yael Bejarano RN) 49e. Infertility Treatment: No (06/02/2020 11:32:Yael Bejarano RN) 49f. Previous Cesareans: 0 (06/02/2020 11:32:Yael Bejarano RN) Mother's Height 50b. Height Inches: 62 (08/25/2020 08:56:QS system process) Mother's Weight 51a. Pre- Weight (lbs): 183 (06/02/2020 11:32:Yael Bejarano RN) 51b. Weight at Delivery (lbs): 209 (08/25/2020 08:56:QS system process) 52. Dt Last Normal Menses Began: 12/14/2019 00:00 (06/02/2020 11:32:Yael Bejarano RN) Infections Present/Treated 53a. Gonorrhea: No (06/02/2020 11:32:Yael Bejarano RN) Results this Hospital Visit : Negative (06/02/2020 11:32:Yael Bejarano RN) 53b. Syphilis: No (06/02/2020 11:32:Yael Bejarano RN) 53c. Chlamydia: No (06/02/2020 11:32:Yael Bejarano RN) Results this Hospital Visit: Negative (06/02/2020 11:32:Yael Bejarano RN) 53d. Hepatitis B: No (06/02/2020 11:32:Yael Bejarano RN) Results this Hospital Visit: Negative (06/02/2020 11:32:Yael Bejarano RN) 53h. Mother Tested for HBsAG: Yes (06/02/2020 11:32:Yael Bejarano RN) 53i. Date Tested: 03/10/2020 00:00 (06/02/2020 11:32:Yael Bejarano RN) 53j. Test Result: Negative (06/02/2020 11:32:Yael Bejarano RN) Cigarette Smoking Cigarette Smoking: Never Smoker. [id number] (06/02/2020 11:32:Yael Bejarano RN) Onset of Labor 56a. PROM >12 Hrs: 6.62 (06/02/2020 11:32:QS system process) 56b. Precipitous Labor <3 Hrs: 6 (06/02/2020 11:32:QS system process) 56c. Prolonged Labor > 20 Hrs: 6 (06/02/2020 11:32:QS system process) 57a. Induction of Labor: Induction (06/02/2020 11:32:Yael Bejarano RN) 57c. Non-Vertex Presentation A: Vertex (06/02/2020 11:32:Yael Bejarano RN) 57d. Steroids - Lung Mat: None (06/02/2020 11:32:Yael Bejarano RN) 57d. Steroids - Lung Mat: Not Applicable (06/02/2020 11:32:Yael Bejarano RN) 57f. Mat [place] or Temp >100.4: 98.4 (06/02/2020 11:32:Juliana Mathis RN) 57g. Moderate/Heavy Meconium: Clear (08/25/2020 12:40:Yael Bejarano RN) 57h. Intolerance of Labor: N/A (06/02/2020 11:32:Keena Correa RN) 57i. Epidural/Spinal Anesthesia: Epidural (06/02/2020 11:32:Yael Bejarano RN) Method of Delivery 58a. Forceps - Unsuccessful A: N/A (06/02/2020 11:32:Yael Bejarano RN) 58b. Vacuum - Unsuccessful A: N/A (06/02/2020 11:32:Yael Bejarano RN) 58c. Presentation at 58c. Presentation at - A : Vertex (06/02/2020 11:32:Yael Bejarano RN) 58c. Presentation at - A : N/A (06/02/2020 11:32:Yael Bejarano RN) 58c. Presentation at - A : Cephalic (06/02/2020 11:32:Yael Bejarano RN) Final Route and Method of Del 58d. Baby A Route/Delivery: Vaginal (08/25/2020 19:17:Yael Bejarano RN) 58e. Trial of Labor Attempted: No (06/02/2020 11:32:Yael Bejarano RN) 58e. Trial of Labor Attempted A: N/A (06/02/2020 11:32:Yael Bejarano RN) 58e. Trial of Labor Attempted B: N/A (06/02/2020 11:32:Yael Darci, RN) Maternal Morbidity 59b. 3rd or 4th Degree Lacs: None (06/02/2020 11:32:Yael Darci, RN) Birthweight Baby A: 2730 (06/02/2020 11:32:Radha Swain RN) 60a. Pounds : 6 (06/02/2020 11:32:QS system process) 60b. Ounces: 0 (06/02/2020 11:32:QS system process) 61. GA at Delivery Baby A: 36.6 (06/02/2020 11:32:Yael Bejarano RN) : Late - 34- 36.6 Weeks (06/02/2020 11:32:QS system process) 62a. 5 Minute Baby A: 9 (06/02/2020 11:32:QS system process)
--- NOTE | 2020-08-25 21:21 | Delivery Summary ---
Del Sum A-C Datetime Report Generated by CPN: 08/25/2020 21:21 DELIVERY PERSONNEL DELIVERY PERSONNEL: [id number] Delivery Doctor:: Rosemary Patel MD Labor and Delivery Nurse:: Yael Bejarano RNelder counselor Nurse:: Keena Correa RN Nursery Nurse:: Mechelle Cárdenas RN Research Management Associate/DIRECTOR OF STRATEGIC PARTNERSHIPS: Jumana Green, ST MATERNAL INFORMATION Delivery Anesthesia: Epidural Medications After Delivery: Pitocin 30 Units in 500ml NS/D5W; Cytotec 1000mcg Per Rectum/Vagina Delivery QBL: 238 Maternal Complications: None Provider Comments: Called to patients room as she was complete and +2 station. Pushed through a few contractions then delivered a viable female . After delivery of the head, the shoulders and rest of the body followed. There was a nuchal cord x1 that was easily reduced. The baby was vigorous and cord clamping was delayed for 30 seconds. After cord doubly clamped and cut, infant placed skin to skin. Both Mother and stable. LABOR SUMMARY EDC: 09/16/2020 00:00 No. Babies in Womb: 1 Attempted: No Labor Anesthesia: Epidural LABOR INFORMATION Reason for Induction: Not Applicable; Other Reason for Induction- Other: cholestasis Onset of Labor: 08/25/2020 12:40 Complete Dilatation: 08/25/2020 18:50 Oxytocin: Induction Group B Beta Strep: negative Antibiotics # of Doses: n/a Steroids Given: None Reason Steroids Not Administered: Not Applicable MEMBRANES Membranes Rupture Method: Artificial Rupture of Membranes: 08/25/2020 12:40 Length of Rupture (hr): 6.62 Amniotic Fluid Color: Clear Amniotic Fluid Amount: Scant Amniotic Fluid Odor: None STAGES OF LABOR Stage 1 hr: 6 Stage 1 min: 10 Stage 2 hr: 0 Stage 2 min: 27 Stage 3 hr: 0 Stage 3 min: 3 Total Time in Labor hr: 6 Total Time in Labor min: 40 VAGINAL DELIVERY Episiotomy: None Laceration #1: None Laceration Extension #1: N/A Laceration Repair: Not Applicable Sponge Count Correct: Yes Sharps Count Correct: Yes CSECTION DELIVERY Primary Indication: N/A BABY A INFORMATION Infant Delivery Date/Time: 08/25/2020 19:17 Method of Delivery: Vaginal Nurse Controlled Delivery: No Born in Route : No : N/A Forceps: N/A Vacuum Extraction: N/A Shoulder Dystocia : Yes PRESENTATION/POSITION BABY A Presentation: Cephalic Cephalic Presentation: Vertex Vertex Position: Left Occipital Anterior Breech Presentation: N/A PLACENTA INFORMATION BABY A Placenta Delivery Time : 08/25/2020 19:20 Placenta Method of Delivery: Spontaneous Placenta Status: Delivered SCORES BABY A Heart Rate 1 min: >100 bpm Resp Effort 1 min: Good Cry Reflex Irritability 1 min: Cough or Sneeze or Pulls Away Muscle Tone 1 min: Active Motion Color 1 min: Blue/Pale SCORE 1 MIN: 8 Heart Rate 5 min: >100 bpm Resp Effort 5 min: Good Cry Reflex Irritability 5 min: Cough or Sneeze or Pulls Away Muscle Tone 5 min: Active Motion Color 5 min: Body [place], Extremities Blue SCORE 5 MIN: 9 INFORMATION BABY A Gestational Age at Delivery: 36.6 Gestational Status: Late - 34- 36.6 Weeks Outcome : Liveborn Condition : Stable Sex: Female IDENTIFICATION BABY A Verification Date/Time: 08/25/2020 19:44 ID Band Number: [id number] Mother's Name Verified: Yes RN Verifying Infant: Makenna Mathis, RN/SGabriela Correa, RN WEIGHT/LENGTH BABY A Infant Birthweight (gm): 2730 Infant Weight (lb): 6 Weight (oz): 0 Infant Length (in): 20.00 Length (cm): 50.80 CORD INFORMATION BABY A No. Cord Vessels: 3 Nuchal Cord : Around Neck x1, Loose Cord Blood Taken: Yes-For Eval (Mom's Blood Type - or O+) Infant Suction: None ASSESSMENT BABY A Complications: None Physical Findings at Delivery: Within Normal Limits Infant Respirations: Appears Normal Project Control Manager/ALS Called : No Infant Care By: A. Jon RN Transferred To: Remains with Mother BABY B INFORMATION : N/A SIGNATURES Signature: with User ID: Uma : with User ID: Uma
[2020-08-25] MEDS: METHYLERGONOVINE MALEATE 0.2 MG TABLET PO SCH (21:23)
[2020-08-25] MEDS: IBUPROFEN 800 MG TABLET PO SCH (23:05)
[2020-08-26] MEDS: METHYLERGONOVINE MALEATE 0.2 MG TABLET PO SCH ×4 (03:38→21:51)
[2020-08-26] MEDS: IBUPROFEN 800 MG TABLET PO SCH ×3 (06:40→21:50)
[2020-08-26 08:39] LABS: HEMOGLOBIN 10.3 g/dL (12.0-15.5); MEAN CORPUSCULAR HEMOGLOBIN 26.2 pg (27.0-33.4); MEAN CORPUSCULAR HGB CONC 33.3 g/dL (32.0-36.0); MEAN CORPUSCULAR VOLUME 79 fl (80-97); PLATELET COUNT 238 10^3/uL (150-450); RED BLOOD COUNT 3.94 10^6/uL (3.72-5.28); RED CELL DISTRIBUTION WIDTH 12.6 % (11.5-14.0); WHITE BLOOD COUNT 10.6 10^3/uL (4.0-10.5)
--- NOTE | 2020-08-26 09:38 | PDOC PROGRESS REPORT ---
Subjective Date:: 08/26/20 Subjective:: She is doing well today. Reason For Visit: Physical Exam - Physical Exam Vital Signs: Temp Pulse Resp BP Pulse Ox 97.8 F 58 L 16 108/69 99 08/26/20 07:46 08/26/20 07:46 08/26/20 07:46 08/26/20 07:46 08/26/20 07:46 Intake & Output 08/25/20 08/26/20 08/27/20 06:59 06:59 06:59 Weight 94.9 kg General appearance: PRESENT: no acute distress, well-developed, well-nourished Pulses: PRESENT: normal dorsalis pedis pul, +2 pedal pulses bilateral Vascular exam: PRESENT: normal capillary refill Result Laboratory Results: 08/26/20 07:45 08/25/20 09:03 08/25/20 08/25/20 08/25/20 08:50 09:03 09:03 WBC 11.1 H RBC 4.06 Hgb 10.6 L Hct 31.5 L MCV 78 L MCH 26.2 L MCHC 33.7 RDW 12.6 Plt Count 312 Seg Neutrophils % 82.1 H Sodium Potassium Chloride Carbon Dioxide Anion Gap BUN Creatinine Est GFR ( Amer) Glucose Calcium Total Bilirubin AST Alkaline Phosphatase Total Protein Albumin Urine Color YELLOW Urine Appearance SLIGHTLY-CLOUDY Urine pH 6.0 Ur Specific [place] 1.011 Urine Protein NEGATIVE Urine Glucose (UA) NEGATIVE Urine Ketones NEGATIVE Urine Blood NEGATIVE Urine Nitrite NEGATIVE Ur Leukocyte Esterase LARGE H Blood Type O POSITIVE Antibody Screen NEGATIVE 08/25/20 08/26/20 09:03 07:45 WBC 10.6 H RBC 3.94 Hgb 10.3 L Hct 31.0 L MCV 79 L MCH 26.2 L MCHC 33.3 RDW 12.6 Plt Count 238 Seg Neutrophils % Sodium 136.5 L Potassium 4.3 Chloride 104 Carbon Dioxide 22 Anion Gap 11 BUN 12 Creatinine 0.50 L Est GFR ( Amer) > 60 Glucose 100 Calcium 9.7 Total Bilirubin 0.4 AST 252 H Alkaline Phosphatase 198 H Total Protein 7.0 Albumin 3.7 Urine Color Urine Appearance Urine pH Ur Specific [place] Urine Protein Urine Glucose (UA) Urine Ketones Urine Blood Urine Nitrite Ur Leukocyte Esterase Blood Type Antibody Screen Impressions: Doing well ppd#1 Assessment & Plan - Time Time Spent with patient: 15-24 minutes Medications reviewed and adjusted accordingly: Yes Anticipated discharge: Home Anticipated DC Timeframe: within 24 hours
[2020-08-26] MEDS: PANTOPRAZOLE SODIUM 40 MG TABLET.DR PO SCH (09:52)
[2020-08-26] MEDS: PRENATAL VITAMIN W DHA CAPSULE PO SCH (09:52)
[2020-08-26] MEDS: SENNOSIDES/DOCUSATE 8.6-50 MG 1 EACH TABLET PO SCH (09:52)
[2020-08-26] MEDS: FERROUS SULFATE 325 MG TABLET PO SCH ×2 (09:53→18:32)
[2020-08-26] MEDS: DOCUSATE SODIUM 100 MG CAPSULE PO SCH ×2 (09:53→18:31)
[2020-08-26] MEDS: URSODIOL 300 MG CAPSULE PO SCH ×3 (09:56→18:31)
[2020-08-27] MEDS: METHYLERGONOVINE MALEATE 0.2 MG TABLET PO SCH (03:44)
[2020-08-27] MEDS: IBUPROFEN 800 MG TABLET PO SCH (06:26)
[2020-08-27 08:15] VITALS: BP 118/75
[2020-08-27] MEDS: URSODIOL 300 MG CAPSULE PO SCH (10:40)
[2020-08-27] MEDS: FERROUS SULFATE 325 MG TABLET PO SCH (10:41)
[2020-08-27] MEDS: DOCUSATE SODIUM 100 MG CAPSULE PO SCH (10:41)
[2020-08-27] MEDS: SENNOSIDES/DOCUSATE 8.6-50 MG 1 EACH TABLET PO SCH (10:41)
[2020-08-27] MEDS: PANTOPRAZOLE SODIUM 40 MG TABLET.DR PO SCH (10:41)
[2020-08-27] MEDS: PRENATAL VITAMIN W DHA CAPSULE PO SCH (10:41)
--- NOTE | 2020-08-27 11:18 | PDOC DISCHARGE SUMMARY ---
Impression - Admit/DC Date/PCP Admission Date/Primary Care Provider: 08/25/20 08:40 EAGLE DE PAZ CNM Discharge Date: 08/27/20 - Discharge Diagnosis (1) Normal vaginal delivery Is this a current diagnosis for this admission?: Yes (2) Cholestasis during Is this a current diagnosis for this admission?: Yes - Additional Information Discharge Diet: Regular Discharge Activity: Balance Activity w/Rest, Pelvic Rest Referrals: EAGLE DE PAZ CNM [Primary Care Provider] - Prescriptions: Ibuprofen [Motrin 800 mg Tablet] 800 mg PO Q8HP PRN #60 tablet PRN Reason: Home Medications: Vit,Calc76/Iron/Folic [Prenatabs Rx Tablet] 1 each PO DAILY 12/30/17 Omeprazole Magnesium [Prilosec Otc] 40 mg PO DAILY 06/02/20 Ibuprofen [Motrin 800 mg Tablet] 800 mg PO Q8HP PRN #60 tablet 08/27/20 Hospital Course 59. Maternal Morbidity (serious complications experinced by the mother associated with labor and delivery: None of the above Results Laboratory Results: WBC 10.6 10^3/uL (4.0-10.5) H 08/26/20 07:45 RBC 3.94 10^6/uL (3.72-5.28) 08/26/20 07:45 Hgb 10.3 g/dL (12.0-15.5) L 08/26/20 07:45 Hct 31.0 % (36.0-47.0) L 08/26/20 07:45 MCV 79 fl (80-97) L 08/26/20 07:45 MCH 26.2 pg (27.0-33.4) L 08/26/20 07:45 MCHC 33.3 g/dL (32.0-36.0) 08/26/20 07:45 RDW 12.6 % (11.5-14.0) 08/26/20 07:45 Plt Count 238 10^3/uL (150-450) 08/26/20 07:45 Lymph % (Auto) 13.1 % (13-45) 08/25/20 09:03 [place] % (Auto) 4.6 % (3-13) 08/25/20 09:03 Eos % (Auto) 0.0 % (0-6) 08/25/20 09:03 Baso % (Auto) 0.2 % (0-2) 08/25/20 09:03 Absolute Neuts (auto) 9.2 10^3/uL (1.7-8.2) H 08/25/20 09:03 Absolute Lymphs (auto) 1.5 10^3/uL (0.5-4.7) 08/25/20 09:03 Absolute Monos (auto) 0.5 10^3/uL (0.1-1.4) 08/25/20 09:03 Absolute Eos (auto) 0.0 10^3/uL (0.0-0.6) 08/25/20 09:03 Absolute Basos (auto) 0.0 10^3/uL (0.0-0.2) 08/25/20 09:03 Seg Neutrophils % 82.1 % (42-78) H 08/25/20 09:03 Sodium 136.5 mmol/L (137-145) L 08/25/20 09:03 Potassium 4.3 mmol/L (3.6-5.0) 08/25/20 09:03 Chloride 104 mmol/L (98-107) 08/25/20 09:03 Carbon Dioxide 22 mmol/L (22-30) 08/25/20 09:03 Anion Gap 11 (5-19) 08/25/20 09:03 BUN 12 mg/dL (7-20) 08/25/20 09:03 Creatinine 0.50 mg/dL (0.52-1.25) L 08/25/20 09:03 Est GFR ( Amer) > 60 (>60) 08/25/20 09:03 Est GFR (MDRD) Non-Af > 60 (>60) 08/25/20 09:03 Glucose 100 mg/dL (75-110) 08/25/20 09:03 Calcium 9.7 mg/dL (8.4-10.2) 08/25/20 09:03 Total Bilirubin 0.4 mg/dL (0.2-1.3) 08/25/20 09:03 Direct Bilirubin 0.3 mg/dL (0.0-0.4) 08/25/20 09:03 Neonat Total Bilirubin Not Reportable 08/25/20 09:03 Neonat Direct Bilirubin Not Reportable 08/25/20 09:03 Neonat Indirect Bili Not Reportable 08/25/20 09:03 AST 252 U/L (14-36) H 08/25/20 09:03 ALT 373 U/L (<35) H 08/25/20 09:03 Alkaline Phosphatase 198 U/L (38-126) H 08/25/20 09:03 Total Protein 7.0 g/dL (6.3-8.2) 08/25/20 09:03 Albumin 3.7 g/dL (3.5-5.0) 08/25/20 09:03 Urine Color YELLOW 08/25/20 08:50 Urine Appearance SLIGHTLY-CLOUDY 08/25/20 08:50 Urine pH 6.0 (5.0-9.0) 08/25/20 08:50 Ur Specific [place] 1.011 08/25/20 08:50 Urine Protein NEGATIVE mg/dL (NEGATIVE) 08/25/20 08:50 Urine Glucose (UA) NEGATIVE mg/dL (NEGATIVE) 08/25/20 08:50 Urine Ketones NEGATIVE mg/dL (NEGATIVE) 08/25/20 08:50 Urine Blood NEGATIVE (NEGATIVE) 08/25/20 08:50 Urine Nitrite NEGATIVE (NEGATIVE) 08/25/20 08:50 Urine Bilirubin NEGATIVE (NEGATIVE) 08/25/20 08:50 Urine Urobilinogen NEGATIVE mg/dL (<2.0) 08/25/20 08:50 Ur Leukocyte Esterase LARGE (NEGATIVE) H 08/25/20 08:50 Urine Ascorbic Acid NEGATIVE (NEGATIVE) 08/25/20 08:50 Urine Opiates Screen NEGATIVE 08/25/20 08:50 Urine Methadone Screen NEGATIVE 08/25/20 08:50 Ur Barbiturates Screen NEGATIVE 08/25/20 08:50 Ur Phencyclidine Scrn NEGATIVE 08/25/20 08:50 Ur Amphetamines Screen NEGATIVE 08/25/20 08:50 U Benzodiazepines Scrn NEGATIVE 08/25/20 08:50 Urine Cocaine Screen NEGATIVE 08/25/20 08:50 U Marijuana (THC) Screen NEGATIVE 08/25/20 08:50 RPR NONREACTIVE (NONREACTIVE) 08/25/20 09:03 Blood Type O POSITIVE 08/25/20 09:03 Antibody Screen NEGATIVE 08/25/20 09:03 Plan Plan of Treatment: follow up in 4 weeks at [facility] for post check
== END 2020-08-27 13:49 | disposition home or self-care (01) | DRG 805 ==
LOC: LR 08:40 → 2S 22:14
PROVIDERS: ADMIT Obstetrics & Gynecology; ATTEND Obstetrics & Gynecology
PROC: 10E0XZZ Delivery of Products of Conception, External Approach (ICD-10-PCS; principal; 2020-08-25)
PROC: 10907ZC Drainage of Amniotic Fluid, Therapeutic from Products of Conception, Via Natural or Artificial Opening (ICD-10-PCS; 2020-08-25)
PROC: 3E033VJ Introduction of Other Hormone into Peripheral Vein, Percutaneous Approach (ICD-10-PCS; 2020-08-25)
DX: O26.62 Liver and biliary tract disorders in childbirth (principal); K83.1 Obstruction of bile duct; Z37.0 Single live birth; O60.13X0 Preterm labor second trimester with preterm delivery third trimester, not applicable or unspecified; O99.824 Streptococcus B carrier state complicating childbirth; O69.81X0 Labor and delivery complicated by cord around neck, without compression, not applicable or unspecified; Z20.822 Contact with and (suspected) exposure to COVID-19; Z88.6 Allergy status to analgesic agent; Z88.8 Allergy status to other drugs, medicaments and biological substances; Z3A.36 36 weeks gestation of pregnancy
CPT/HCPCS: 1967; 36415; 80053; 80307; 81005; 85025; 85027; 86592; 86850; 86900; 86901; J2300; J2540; J2590; J2795; J3010; J3490; J7060